=== PATIENT | female | born 2000 | race Caucasian/White ===

== ENCOUNTER 2025-03-18 13:49 | Outpatient (AMB) | payer MEDICAID, SELFPAY ==
[2025-03-18 14:16] VITALS: BP 116/71; PULSE 95; RESP 20; TEMP 36.8; O2SAT 99; BMI 27.6
--- NOTE | 2025-03-18 14:16 | AMB.OBINITIA ---
Vital Signs 03/18/25 14:16 Height 1.55 m Height Method Stated Weight 66.281 kg Weight Measurement Method Standing Scale BMI 27.6 BP 116/71 Blood Pressure Source Automatic Cuff Blood Pressure Location Right Upper Arm Position Sitting Respiration 20 Pulse 95 Pulse Source Monitor Temp 98.2 F Temp Source Oral Pulse Oximetry (%) 99 Oxygen Delivery Method Room Air Allergies/Home Meds Allergies & Medications Allergies No Known Allergies Allergy (Verified 03/18/25 14:17) Medication Reconciliation No Known Home Medications 03/18/25 [History Confirmed 03/18/25] Intake Visit Data Collection New Patient or Established: New Patient (never been to [facility]) Reason for Visit:: INITIAL CARE/TRANSFER Seen by Clinical Staff ONLY (RN/MA): No Finance Assistant Required: No Do You Feel Safe at Home: Yes Authorities Contacted: N/A PCP or OBGYN visit in last 3 months: Yes Hx Now: Yes Are you currently on any form of Control: No Last menstrual period: 01/11/25 Pain Present Currently: No Pain Scale Used: Wilcox-Cisse/Numerical Pain scale:: 0 Smoking Status Smoking Status: Never smoker Questionnaires Covid-19 Vaccine Questionnaire Has patient been vacinated for Covid-19 Have you been vacinated for Covid-19: Yes PHQ-9 PHQ-2 Over the last 2 weeks, how often have you been bothered by any of the following problems? 1. Little interest or pleasure in doing things: not at all 2. Feeling down, depressed, or hopeless: not at all Total score: 0 PHQ-9 3. Trouble falling or staying asleep, or sleeping too much: Not at all 4. Feeling tired or having little energy: Not at all 5. Poor appetite or overeating: Not at all 6. Feeling bad about yourself - or that you are a failure or have let yourself or your family down: Not at all 7. Trouble concentrating on things, such as reading the newspaper or watching television: Not at all 8. Moving or speaking so slowly that other people could have noticed? - Or the opposite - being so fidgety or restless that you have been moving around a lot more than usual: not at all 9. Thoughts that you would be better off or of hurting yourself in some way: Not at all Total score: 0 Source: Developed by Drs. Tay Wilder, Elana Mcmanus, Bashir Santana and colleagues, with an educational antonia from [employer]. Depression screen completed yes Social History Living Situation History Marital Status: Lives With: Family Housing: House Tobacco History Smoking Status: Never smoker Second Hand Smoke Exposure: No Alcohol History Alcohol Intake: Never Domestic Abuse History Do You Feel Safe at Home: Yes History of Present Illness HPI Narrative 25-year-old 4 para 3 here for OBI. Last period January 11, 2025. Estimated due date October 21, 2025. Patient reports regular menses x 5 days and she is sure of her dates. Denies any existing chronic illness. Denies social habits. Patient had a Pap smear that was normal. Her GC and Chlamydia were negative. Thyroid negative. O+, antibody screen negative, RPR nonreactive, rubella immune, hepatitis B negative, C-, HIV negative, GC and Chlamydia were negative. Patient had negative drug screen. And platelets were 167. Patient reports that she spotted through the month of February. Was seen in the ER and she was told she had a subchorionic hemorrhage. It was in [place] and we have not been able to get records so medical release will be done OB Initial Visit OB Flowsheet OB Flowsheet Initial Weight: Not Recorded Date <del>?</del> EGA Weight BP Alb Glu CTX Pres Fundal ht FHR Mov Dilation Station Effacement Hx Notes Visit Note 03/18/25 <del>?</del> 9w 3d 66.281 kg 116/71 absent unknown 9 156 absent spotting light, no cramps. unable to get ER record, subchorionic bleed, no leaking or pain, c/s x3. denies social habit,no surgery. certain dates schedule MFM sono, NIPT NV, OB panel today. continue PNV, hydrate, SAB precaution, rtc 3 week Menstrual History Menstrual reliability: definite Flow: normal Menstrual regularity: regular Monthly: Yes Age at menarche: 10 On control pills at conception: No Associated symptoms (LMP): Reports nausea, fatigue and breast tenderness OB History : 4 Para: 3 # of Living Children: 3 Delivery History 1st : Child's name: IGNACIO date: 07/16/17 sex: male Delivery type: Delivery complications: NONE History of depression before or after : No 2nd : Child's name: ZORAIDA date: 07/26/18 sex: male Delivery type: Delivery complications: NONE History of depression before or after : No 3rd : Child's name: MAME date: 08/09/20 sex: female Delivery type: History of depression before or after : No Infection History & Risk Evaluation History of STDs: none Genetic Screening & History Genetic Screening/Teratology Counseling - Includes patient, baby's father, or anyone in either family with: 1. Patient's age 35 years or older as of estimated date of delivery: No 2. Thalassemia (Peruvian, Serbian, Mediterranean, or Background); MCV less than 80: No 3. Neural Tube Defect (Meningomyelocele, Spina Bifida, or Anencephaly): No 4. Congenital Heart Defect: No 5. Down Syndrome: No 6. Rohit-Sachs (Ashkenazi Zoroastrian, Cajun, Georgian [place]): No 7. Claudette Disease (Ashkenazi Zoroastrian): No 8. Familial Dysautonomia (Ashkenazi Zoroastrian): No 9. Sickle Cell Disease or Trait (): No 10. Hemophilia or other blood disorders: No 11. Muscular Dystrophy: No 12. Cystic Fibrosis: No 13. [place]'s Chorea: No 14. Mental Retardation/Autism: No 15. Other inherited genetic or chromosomal disorder: No 16. Maternal Metabolic Disorder (EG,TYPE 1 Diabetes, PKU): No 17. Patient or baby's father had a child with defects not listed above: No 18. Recurrent loss or a stillbirth: No 19. Medications (including supplements, vitamins, herbs or otc drugs)/illicit/recreational drugs/alcohol since last menstrual period: No 20. Any other: No Infection History 1. Live with someone with TB or exposed to TB: No 2. Rash or viral illness since last menstrual period: No 3. Hepatitis B,C: No Other (see comments) Source: [employer] Review of Systems Review of Systems Systems Reviewed: All systems reviewed, normal except as documented Constitutional Constitutional: Reports fatigue Gastrointestinal Gastrointestinal: Reports nausea Endocrine Endocrine: Reports fatigue Exam General Limitations: no limitations General Appearance: alert, in no apparent distress, comfortable, cooperative, healthy appearing, well developed and well groomed Head Head exam: atraumatic, normocephalic and normal inspection Chest Chest inspection: Present normal inspection and symmetric chest wall rise Resp Respiratory exam: Present normal lung sounds bilaterally Abdominal Abdominal exam: Present soft, normal bowel sounds and scar (vertical skin incision) Psych Psychiatric exam: Present normal affect and normal mood Office Procedures OB Clinic LOC & Office Proc's Nursing/Assessment Patient Status: Initial/New Patient OB Clinic Nursing Assessment: Medication Reconciliation, Update PMH in EMR and Vital Signs OB Clinic Coordination of Care: Complex Care and Chronic Disease 1-5, Consent,records obtained, informed consent, Education Simp Pt/Fam, Lab and Imaging orders, Results/Orders obtained and Staff clarify orders Special Needs: Heart tones New Patient Charge New Patient Point Assignment: [id number] New Patient Point Charge: IMPORT/EXPORT AGENT Level 4 ([id number]) Assessment & Plan Diagnosis / Problem List (1) Encounter for supervision of normal in multigravida in first trimester: Status: Acute (2) Previous delivery affecting , antepartum: Status: Acute Plan continue PNV, discuss sab precaution. schedule MFM for NT, OB panel today. hydrate. rtc 2 week Additional Plan Follow Up: 2 Weeks (obc)
== END 2025-03-18 14:40 | disposition home or self-care (01) ==
PROVIDERS: Supervising Provider Advanced Practice Midwife; Visit Provider Advanced Practice Midwife
DX: O09.291 Supervision of pregnancy with other poor reproductive or obstetric history, first trimester (principal); Z3A.09 9 weeks gestation of pregnancy; O34.219 Maternal care for unspecified type scar from previous cesarean delivery
CPT/HCPCS: 99204; G0463

== ENCOUNTER 2025-05-01 11:33 | Outpatient (AMB) | payer MEDICAID, SELFPAY ==
[2025-05-01 11:45] VITALS: BP 107/69; PULSE 80; RESP 17; TEMP 36.8; O2SAT 98; BMI 27.4
--- NOTE | 2025-05-01 11:45 | AMB.OBVISIT ---
Vital Signs 05/01/25 11:45 Height 1.55 m Height Method Measured Weight 65.998 kg Weight Measurement Method Standing Scale BMI 27.4 BP 107/69 Blood Pressure Source Automatic Cuff Blood Pressure Location Right Upper Arm Position Sitting Respiration 17 Pulse 80 Pulse Source Monitor Temp 98.2 F Temp Source Temporal Artery Scan Pulse Oximetry (%) 98 Oxygen Delivery Method Room Air Allergies/Home Meds Allergies & Medications Allergies No Known Allergies Allergy (Verified 05/01/25 11:46) Medication Reconciliation No Known Home Medications 03/18/25 [History Confirmed 05/01/25] Intake Visit Data Collection New Patient or Established: Established Patient (seen at [facility] within 3 years) Reason for Visit:: OBC Consent obtained for Telemed Visit: No Seen by Clinical Staff ONLY (RN/MA): No Health And Human Performance Professor Required: Yes Health And Human Performance Professor's name/title: CELE Do You Feel Safe at Home: Yes Authorities Contacted: N/A PCP or OBGYN visit in last 3 months: Yes Date of Last PCP or OBGYN visit: 04/04/25 Hx Now: Yes Are you currently on any form of Control: No Pain Present Currently: Yes Pain Location: Head Pain scale:: 8 Smoking Status Smoking Status: Never smoker Questionnaires Covid-19 Vaccine Questionnaire Has patient been vacinated for Covid-19 Have you been vacinated for Covid-19: Yes PHQ-9 PHQ-2 Over the last 2 weeks, how often have you been bothered by any of the following problems? 1. Little interest or pleasure in doing things: not at all PHQ-9 8. Moving or speaking so slowly that other people could have noticed? - Or the opposite - being so fidgety or restless that you have been moving around a lot more than usual: not at all Source: Developed by Drs. Tay Wilder, Elana Mcmanus, Bashir Snatana and colleagues, with an educational antonia from [employer]. Social History Living Situation History Lives With: Family Housing: House Tobacco History Smoking Status: Never smoker Second Hand Smoke Exposure: No Alcohol History Alcohol Intake: Never Domestic Abuse History Do You Feel Safe at Home: Yes Care OB Visit Log OB Flowsheet Initial Weight: Not Recorded Date <del>?</del> EGA Weight BP Alb Glu CTX Pres Fundal ht FHR Mov Dilation Station Effacement Hx Notes Visit Note 03/18/25 <del>?</del> 9w 3d 66.281 kg 116/71 absent unknown 9 156 absent spotting light, no cramps. unable to get ER record, subchorionic bleed, no leaking or pain, c/s x3. denies social habit,no surgery. certain dates schedule MFM sono, NIPT NV, OB panel today. continue PNV, hydrate, SAB precaution, rtc 3 week 04/04/25 <del>?</del> 11w 6d 65.941 kg 111/73 absent unknown 10 156 active denies bleeding at this time. denies sab complaints. n/v improving. unable to go to [place] for MFM. appt cancelled by [facility]. r/s sono at [facility], nipt/carrier screen today, discuss sab precaution, rtc 4 week with ob/prev c/s x3 05/01/25 <del>?</del> 15w 5d 65.998 kg 107/69 absent unknown 159 active , 15w5d. No CTX/LOF/VB, good FM. Reports occasional MARLOW and abdominal pulling, likely due to prior CS scar tissue and position. FHR 159 bpm. Hx 3 prior CS, early bleed with resolved hematoma. Prior labs and NIPT normal. AFP pending. Plan: Order AFP to be sent to [facility]. Pt to expect call from [facility] regarding testing. Request US report from [facility]. Recommend side-lying opposite position. Tylenol up to 1000?mg PRN for MARLOW. Discuss TL at time of CS. F/u per routine. SOCO Calculator Estimated Delivery Date Method Current WG Current Estimate 10/18/25 LMP (Certain) 15w 6d Notes Visit Date: 03/18/25 Last Updated by: Kristan Kay CNM 25 yo , c/sx3. LMP 01/11/25 EDC 10/21/25. pap wnl, O+,abs-,rpr;;nr, rub imm, hbsag-,HIV-,HC-, GC/CT-, UT-, TSH normal. Office Procedures OB Clinic LOC & Office Proc's Nursing/Assessment Patient Status: Established Patient OB Clinic Nursing Assessment: Medication Reconciliation, Update PMH in EMR and Vital Signs OB Clinic Coordination of Care: Complex Care and Chronic Disease 1-5, Education Complex Pt/Fam, Consent,records obtained, informed consent and Education Simp Pt/Fam Special Needs: Heart tones Established Patient Charge Established Patient Point Assignment: 125 Established Patient Point Charge: EP Level 4 (120-155) Assessment & Plan Diagnosis / Problem List (1) Previous delivery affecting , antepartum: Status: Acute Plan Problem List - - Previous delivery - Headache - Abdominal pain Assessment , 25-year-old female at 15 weeks and 5 days gestation, presenting for routine visit. History of three previous sections. Patient reports occasional headaches and pulling sensation in the abdomen, likely due to scar tissue from previous C-sections and positioning. heart rate auscultated at 159 bpm, within normal limits. Previous labs and NIPT reported as normal. History of bleeding in early with resolved hematoma, no current concerns noted. AFP test pending. Plan - Order AFP test, to be sent to [facility] - Patient to receive call from [facility] regarding AFP test - Obtain and review ultrasound report from [facility] - Patient advised to sleep on the side opposite to where the baby is positioned - Patient can take up to 1000mg of Tylenol for occasional headaches - Consider tubal ligation during upcoming (patient to think about it) - Follow up for next visit (timing not specified) This visit does not meet the criteria for the provided format request. The patient is at 15 weeks and 5 days gestation, which is less than 20 weeks. Additionally, this is not a third-trimester visit. Therefore, the given format is not applicable to this specific visit.
== END 2025-05-01 12:07 | disposition home or self-care (01) ==
LOC: HODSOBC 11:33
PROVIDERS: Supervising Provider Obstetrics & Gynecology; Visit Provider Obstetrics & Gynecology
DX: O09.292 Supervision of pregnancy with other poor reproductive or obstetric history, second trimester (principal); O34.219 Maternal care for unspecified type scar from previous cesarean delivery; O09.892 Supervision of other high risk pregnancies, second trimester; O99.891 Other specified diseases and conditions complicating pregnancy; R51.9 Headache, unspecified; R10.9 Unspecified abdominal pain; Z3A.15 15 weeks gestation of pregnancy
CPT/HCPCS: 99214; G0463

== ENCOUNTER 2025-05-29 10:54 | Outpatient (AMB) | payer MEDICAID, SELFPAY ==
[2025-05-29 11:06] VITALS: BP 109/69; PULSE 96; RESP 18; TEMP 36.8; O2SAT 98; BMI 27.9
--- NOTE | 2025-05-29 11:06 | AMB.OBVISIT ---
Vital Signs 05/29/25 11:06 Height 1.55 m Height Method Stated Weight 67.132 kg Weight Measurement Method Standing Scale BMI 27.9 BP 109/69 Blood Pressure Source Automatic Cuff Blood Pressure Location Left Upper Arm Position Sitting Respiration 18 Pulse 96 Pulse Source Monitor Temp 98.2 F Temp Source Oral Pulse Oximetry (%) 98 Oxygen Delivery Method Room Air Allergies/Home Meds Allergies & Medications Allergies No Known Allergies Allergy (Verified 05/29/25 11:08) Medication Reconciliation No Known Home Medications 03/18/25 [History Confirmed 05/29/25] Intake Visit Data Collection New Patient or Established: Established Patient (seen at [facility] within 3 years) Reason for Visit:: OBC Cnc Programmer Required: Yes Do You Feel Safe at Home: Yes Authorities Contacted: N/A PCP or OBGYN visit in last 3 months: Yes Date of Last PCP or OBGYN visit: 05/01/25 Hx Now: Yes Are you currently on any form of Control: No Pain Present Currently: No Pain Scale Used: Wilcox-Cisse/Numerical Pain scale:: 0 Smoking Status Smoking Status: Never smoker Questionnaires Covid-19 Vaccine Questionnaire Has patient been vacinated for Covid-19 Have you been vacinated for Covid-19: Yes PHQ-9 PHQ-2 Over the last 2 weeks, how often have you been bothered by any of the following problems? 1. Little interest or pleasure in doing things: not at all 2. Feeling down, depressed, or hopeless: not at all Total score: 0 PHQ-9 3. Trouble falling or staying asleep, or sleeping too much: Not at all 4. Feeling tired or having little energy: Not at all 5. Poor appetite or overeating: Not at all 6. Feeling bad about yourself - or that you are a failure or have let yourself or your family down: Not at all 7. Trouble concentrating on things, such as reading the newspaper or watching television: Not at all 8. Moving or speaking so slowly that other people could have noticed? - Or the opposite - being so fidgety or restless that you have been moving around a lot more than usual: not at all 9. Thoughts that you would be better off or of hurting yourself in some way: Not at all Total score: 0 If you checked off any problems, how difficult have these problems made it for you to do your work, take care of things at home, or get along with other people?: not difficult at all Source: Developed by Drs. Tay Wilder, Elana Mcmanus, Bashir Santana and colleagues, with an educational antonia from [employer]. Depression screen completed yes Social History Living Situation History Lives With: Family Housing: House Tobacco History Smoking Status: Never smoker Second Hand Smoke Exposure: No Alcohol History Alcohol Intake: Never Domestic Abuse History Do You Feel Safe at Home: Yes Care OB Visit Log OB Flowsheet Initial Weight: Not Recorded Date <del>?</del> EGA Weight BP Alb Glu CTX Pres Fundal ht FHR Mov Dilation Station Effacement Hx Notes Visit Note 03/18/25 <del>?</del> 9w 3d 66.281 kg 116/71 absent unknown 9 156 absent spotting light, no cramps. unable to get ER record, subchorionic bleed, no leaking or pain, c/s x3. denies social habit,no surgery. certain dates schedule MFM sono, NIPT NV, OB panel today. continue PNV, hydrate, SAB precaution, rtc 3 week 04/04/25 <del>?</del> 11w 6d 65.941 kg 111/73 absent unknown 10 156 active denies bleeding at this time. denies sab complaints. n/v improving. unable to go to [place] for MFM. appt cancelled by [facility]. r/s sono at [facility], nipt/carrier screen today, discuss sab precaution, rtc 4 week with ob/prev c/s x3 05/01/25 <del>?</del> 15w 5d 65.998 kg 107/69 absent unknown 159 active , 15w5d. No CTX/LOF/VB, good FM. Reports occasional MARLOW and abdominal pulling, likely due to prior CS scar tissue and position. FHR 159 bpm. Hx 3 prior CS, early bleed with resolved hematoma. Prior labs and NIPT normal. AFP pending. Plan: Order AFP to be sent to [facility]. Pt to expect call from [place] regarding testing. Request US report from [facility]. Recommend side-lying opposite position. Tylenol up to 1000?mg PRN for MARLOW. Discuss TL at time of CS. F/u per routine. 05/29/25 <del>?</del> 19w 5d 67.132 kg 109/69 absent cephalic 20 155 active Patient has a history of 3 prior deliveries. Denies MARLOW, VC, and epigastric pain. - AFP test ordered for next appointment - Scheduled follow-up appointment for June 12 at 2:30 PM, pending provider availability - Medication refill request to be communicated to Dr. Tatianna WAN Calculator Estimated Delivery Date Method Current WG Current Estimate 10/18/25 LMP (Certain) 23w 4d Notes Visit Date: 03/18/25 Last Updated by: Kristan Kay, CNM 25 yo , c/sx3. LMP 01/11/25 EDC 10/21/25. pap wnl, O+,abs-,rpr;;nr, rub imm, hbsag-,HIV-,HC-, GC/CT-, UT-, TSH normal. Office Procedures OB Clinic LOC & Office Proc's Nursing/Assessment Patient Status: Established Patient OB Clinic Nursing Assessment: Medication Reconciliation, Update PMH in EMR and Vital Signs OB Clinic Coordination of Care: Education Complex Pt/Fam, Consent,records obtained, informed consent, Lab and Imaging orders, Results/Orders obtained and Staff clarify orders Special Needs: Language special needs Established Patient Charge Established Patient Point Assignment: 85 Established Patient Point Charge: EP Level 3 (80-115) Assessment & Plan Diagnosis / Problem List (1) Previous delivery affecting , antepartum: Status: Acute
== END 2025-05-29 11:19 | disposition home or self-care (01) ==
LOC: HODSOBC 10:54
PROVIDERS: Supervising Provider Obstetrics & Gynecology; Visit Provider Obstetrics & Gynecology
DX: O09.292 Supervision of pregnancy with other poor reproductive or obstetric history, second trimester (principal); O34.219 Maternal care for unspecified type scar from previous cesarean delivery; Z3A.19 19 weeks gestation of pregnancy
CPT/HCPCS: 99213; G0463

== ENCOUNTER 2025-07-02 10:09 | Outpatient (AMB) | payer MEDICAID, SELFPAY ==
[2025-07-02 10:14] VITALS: BP 108/67; PULSE 87; RESP 16; TEMP 36.2; O2SAT 98; BMI 28.5
--- NOTE | 2025-07-02 10:14 | AMB.OBVISIT ---
Vital Signs 07/02/25 10:14 Height 1.55 m Height Method Stated Weight 68.719 kg Weight Measurement Method Standing Scale BMI 28.5 BP 108/67 Blood Pressure Source Automatic Cuff Blood Pressure Location Left Upper Arm Position Sitting Respiration 16 Pulse 87 Pulse Source Monitor Temp 97.2 F Temp Source Oral Pulse Oximetry (%) 98 Oxygen Delivery Method Room Air Allergies/Home Meds Allergies & Medications Allergies No Known Allergies Allergy (Verified 07/02/25 10:15) Medication Reconciliation No Known Home Medications 03/18/25 [History Confirmed 07/02/25] Intake Visit Data Collection New Patient or Established: Established Patient (seen at [facility] within 3 years) Reason for Visit:: OBC Seen by Clinical Staff ONLY (RN/MA): No Search Specialist Required: No Do You Feel Safe at Home: Yes Authorities Contacted: N/A PCP or OBGYN visit in last 3 months: Yes Hx Now: Yes Are you currently on any form of Control: No Pain Present Currently: No Pain Scale Used: Wilcox-Cisse/Numerical Pain scale:: 0 Smoking Status Smoking Status: Never smoker Questionnaires Covid-19 Vaccine Questionnaire Has patient been vacinated for Covid-19 Have you been vacinated for Covid-19: Yes PHQ-9 PHQ-2 Over the last 2 weeks, how often have you been bothered by any of the following problems? 1. Little interest or pleasure in doing things: not at all 2. Feeling down, depressed, or hopeless: not at all Total score: 0 PHQ-9 3. Trouble falling or staying asleep, or sleeping too much: Not at all 4. Feeling tired or having little energy: Not at all 5. Poor appetite or overeating: Not at all 6. Feeling bad about yourself - or that you are a failure or have let yourself or your family down: Not at all 7. Trouble concentrating on things, such as reading the newspaper or watching television: Not at all 8. Moving or speaking so slowly that other people could have noticed? - Or the opposite - being so fidgety or restless that you have been moving around a lot more than usual: not at all 9. Thoughts that you would be better off or of hurting yourself in some way: Not at all Total score: 0 If you checked off any problems, how difficult have these problems made it for you to do your work, take care of things at home, or get along with other people?: not difficult at all Source: Developed by Drs. Tay Wilder, Elana Mcmanus, Bashir Santana and colleagues, with an educational antonia from [employer]. Depression screen completed yes Social History Living Situation History Marital Status: Single Lives With: Family Housing: House Tobacco History Smoking Status: Never smoker Second Hand Smoke Exposure: No Alcohol History Alcohol Intake: Never Domestic Abuse History Do You Feel Safe at Home: Yes Care OB Visit Log OB Flowsheet Initial Weight: Not Recorded Date <del>?</del> EGA Weight BP Alb Glu CTX Pres Fundal ht FHR Mov Dilation Station Effacement Hx Notes Visit Note 03/18/25 <del>?</del> 9w 3d 66.281 kg 116/71 absent unknown 9 156 absent spotting light, no cramps. unable to get ER record, subchorionic bleed, no leaking or pain, c/s x3. denies social habit,no surgery. certain dates schedule MFM sono, NIPT NV, OB panel today. continue PNV, hydrate, SAB precaution, rtc 3 week 04/04/25 <del>?</del> 11w 6d 65.941 kg 111/73 absent unknown 10 156 active denies bleeding at this time. denies sab complaints. n/v improving. unable to go to [place] for MFM. appt cancelled by [facility]. r/s sono at [facility], nipt/carrier screen today, discuss sab precaution, rtc 4 week with ob/prev c/s x3 05/01/25 <del>?</del> 15w 5d 65.998 kg 107/69 absent unknown 159 active , 15w5d. No CTX/LOF/VB, good FM. Reports occasional MARLOW and abdominal pulling, likely due to prior CS scar tissue and position. FHR 159 bpm. Hx 3 prior CS, early bleed with resolved hematoma. Prior labs and NIPT normal. AFP pending. Plan: Order AFP to be sent to [facility]. Pt to expect call from [place] regarding testing. Request US report from [facility]. Recommend side-lying opposite position. Tylenol up to 1000?mg PRN for MARLOW. Discuss TL at time of CS. F/u per routine. 05/29/25 <del>?</del> 19w 5d 67.132 kg 109/69 absent cephalic 20 155 active Patient has a history of 3 prior deliveries. Denies MARLOW, VC, and epigastric pain. - AFP test ordered for next appointment - Scheduled follow-up appointment for June 12 at 2:30 PM, pending provider availability - Medication refill request to be communicated to Dr. Campuzano 07/02/25 <del>?</del> 24w 4d 68.719 kg 108/67 absent cephalic 25 145 active - Patient reports occasional contractions - Described as occurring occasionally - No specific duration mentioned - Denies any problems or concerns with the - Reports active movement - No complaints of pain, bleeding, or other -related symptoms mentioned Plan - Perform one-hour glucose tolerance test for diabetes screening - Follow up on ultrasound appointment in [place] - New referral created for maternal medicine with Dr. Son in [place] for placenta assessment due to history of 3 previous C-sections - Patient advised to drink plenty of water to prevent contractions - Patient instructed to go to hospital if contractions last more than half an hour to one hour SOCO Calculator Estimated Delivery Date Method Current WG Current Estimate 10/18/25 LMP (Certain) 25w 2d Notes Visit Date: 03/18/25 Last Updated by: Kristan Kay CNM 25 yo , c/sx3. LMP 01/11/25 EDC 10/21/25. pap wnl, O+,abs-,rpr;;nr, rub imm, hbsag-,HIV-,HC-, GC/CT-, UT-, TSH normal. Office Procedures OB Clinic LOC & Office Proc's Nursing/Assessment Patient Status: Established Patient OB Clinic Nursing Assessment: Medication Reconciliation, Update PMH in EMR and Vital Signs OB Clinic Coordination of Care: Education Complex Pt/Fam, Consent,records obtained, informed consent, Lab and Imaging orders, Results/Orders obtained and Staff clarify orders Special Needs: Heart tones and Language special needs Established Patient Charge Established Patient Point Assignment: 115 Established Patient Point Charge: EP Level 3 (80-115) Assessment & Plan Diagnosis / Problem List (1) Previous delivery affecting , antepartum: Status: Acute (2) Encounter for supervision of normal in multigravida in first trimester: Status: Acute Plan Problem List - , 24 weeks and 4 days - History of 3 sections - 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 Patient reports occasional contractions. AFP test on 05-04-2025 was negative. One-hour glucose tolerance test on 06-09-2025 was negative. Concern for placenta accreta spectrum due to history of multiple C-sections. movement reported as active. No other acute concerns noted. Plan - Perform one-hour glucose tolerance test for diabetes screening - Follow up on ultrasound appointment in [place] - New referral created for maternal medicine with Dr. Son in [place] for placenta assessment due to history of 3 previous C-sections - Patient advised to drink plenty of water to prevent contractions - Patient instructed to go to hospital if contractions last more than half an hour to one hour 1. Progress Reviewed gestational age, growth, and heart rate. Planned frequent visits (every 2 weeks until 36 weeks, then weekly). 2. Instructed patient to monitor movements and report decreases immediately. 3. Testing Counseled on routine third-trimester labs per guidelines. Discussed potential need for ultrasound or monitoring based on risk factors. 4. Preeclampsia Precaution Educated on preeclampsia signs: severe headache, vision changes, right upper quadrant pain, sudden swelling. Advised urgent reporting of symptoms and discussed blood pressure monitoring if high risk. 5. Labor Precautions Reviewed labor signs: regular contractions, pelvic pressure, back pain, bleeding, or fluid leakage. Instructed to seek immediate care for these symptoms. 6. Lifestyle and Delivery Preparation Reinforced vitamins, nutrition, and safe activity. Discussed plan, pain management, and . Advised on labor preparation (e.g., hospital bag) and expectations. 7. Psychosocial Support Assessed emotional well-being and offered resources for mental health or parenting support.
== END 2025-07-02 10:49 | disposition home or self-care (01) ==
PROVIDERS: Supervising Provider Obstetrics & Gynecology; Visit Provider Obstetrics & Gynecology
DX: O09.292 Supervision of pregnancy with other poor reproductive or obstetric history, second trimester (principal); O34.219 Maternal care for unspecified type scar from previous cesarean delivery; Z3A.24 24 weeks gestation of pregnancy
CPT/HCPCS: 99213; G0463

== ENCOUNTER 2025-07-31 09:27 | Outpatient (AMB) | payer MEDICAID, SELFPAY ==
[2025-07-31 09:34] VITALS: BP 117/73; PULSE 99; RESP 18; TEMP 36.2; O2SAT 98; BMI 28.9
--- NOTE | 2025-07-31 09:34 | OBCLNT_ITS ---
Vital Signs 07/31/25 09:34 Height 1.55 m Height Method Stated Weight 69.513 kg Weight Measurement Method Standing Scale BMI 28.9 BP 117/73 Blood Pressure Source Automatic Cuff Blood Pressure Location Left Upper Arm Position Sitting Respiration 18 Pulse 99 Pulse Source Monitor Temp 97.2 F Temp Source Oral Pulse Oximetry (%) 98 Oxygen Delivery Method Room Air Allergies/Home Meds Allergies & Medications Allergies No Known Allergies Allergy (Verified 07/31/25 09:36) Medication Reconciliation No Known Home Medications 03/18/25 [History Confirmed 07/31/25] Intake Visit Data Collection New Patient or Established: Established Patient (seen at [facility] within 3 years) Reason for Visit:: OBC Seen by Clinical Staff ONLY (RN/MA): No Stitch Bonding Machine Tender Required: No Do You Feel Safe at Home: Yes Authorities Contacted: N/A PCP or OBGYN visit in last 3 months: Yes Date of Last PCP or OBGYN visit: 07/02/25 Hx Now: Yes Are you currently on any form of Control: No Pain Present Currently: No Pain Scale Used: Wilcox-Cisse/Numerical Pain scale:: 0 Smoking Status Smoking Status: Never smoker Questionnaires Covid-19 Vaccine Questionnaire Has patient been vacinated for Covid-19 Have you been vacinated for Covid-19: Yes PHQ-9 PHQ-2 Over the last 2 weeks, how often have you been bothered by any of the following problems? 1. Little interest or pleasure in doing things: not at all 2. Feeling down, depressed, or hopeless: not at all Total score: 0 PHQ-9 3. Trouble falling or staying asleep, or sleeping too much: Not at all 4. Feeling tired or having little energy: Not at all 5. Poor appetite or overeating: Not at all 6. Feeling bad about yourself - or that you are a failure or have let yourself or your family down: Not at all 7. Trouble concentrating on things, such as reading the newspaper or watching television: Not at all 8. Moving or speaking so slowly that other people could have noticed? - Or the opposite - being so fidgety or restless that you have been moving around a lot more than usual: not at all 9. Thoughts that you would be better off or of hurting yourself in some way: Not at all Total score: 0 If you checked off any problems, how difficult have these problems made it for you to do your work, take care of things at home, or get along with other people?: not difficult at all Source: Developed by Drs. Tay Wilder, Elana Mcmanus, Bashir Santana and colleagues, with an educational antonia from [employer]. Depression screen completed yes Social History Living Situation History Marital Status: Single Lives With: Family Housing: House Tobacco History Smoking Status: Never smoker Second Hand Smoke Exposure: No Alcohol History Alcohol Intake: Never Domestic Abuse History Do You Feel Safe at Home: Yes Care OB Visit Log OB Flowsheet Initial Weight: Not Recorded Date -?-?-?-?-?-?-?-?-?-?-?-?- EGA Weight BP Alb Glu CTX Pres Fundal ht FHR Mov Dilation Station Effacement Hx Notes Visit Note 03/18/25 -?-?-?--?-?-?-?-?-?-?-?-?- 9w 3d 66.281 kg 116/71 absent unknown 9 156 absent spotting light, no cramps. unable to get ER record, subchorionic bleed, no leaking or pain, c/s x3. denies social habit,no surgery. certain dates schedule MFM sono, NIPT NV, OB panel today. continue PNV, hydrate, SAB precaution, rtc 3 week 04/04/25 -?-?-?-?-?-?-?-?-?-?-?-?- 11w 6d 65.941 kg 111/73 absent unknown 10 156 active denies bleeding at this time. denies sab complaints. n/v improving. unable to go to [place] for MFM. appt cancelled by [facility]. r/s sono at [facility], nipt/carrier screen today, discuss sab precaution, rtc 4 week with ob/prev c/s x3 05/01/25 -?-?-?-?-?-?-?-?-?-?-?-?- 15w 5d 65.998 kg 107/69 absent unknown 159 active , 15w5d. No CTX/LOF/VB, good FM. Reports occasional MARLOW and abdominal pulling, likely due to prior CS scar tissue and position. FHR 159 bpm. Hx 3 prior CS, early bleed with resolved hematoma. Prior labs and NIPT normal. AFP pending. Plan: Order AFP to be sent to [facility]. Pt to expect call from [place] regarding testing. Request US report from [facility]. Recommend side-lying opposite position. Tylenol up to 1000?mg PRN for MARLOW. Discuss TL at time of CS. F/u per routine. 05/29/25 -?-?-?-?-?-?-?-?-?-?-?-?- 19w 5d 67.132 kg 109/69 absent cephalic 20 155 active Patient has a history of 3 prior deliveries. Denies MARLOW, VC, and epigastric pain. - AFP test ordered for next appointment - Scheduled follow-up appointment for [place] [place] at 2:30 PM, pending provider availability - Medication refill request to be commun icated to Dr. Campuzano 07/02/25 -?-?-?-?-?-?-?-?-?-?-?-?- 24w 4d 68.719 kg 108/67 absent cephalic 25 145 active - Patient reports occasional contractions - Described as occurring occasionally - No specific duration mentioned - Denies any problems or concerns with t he - Reports active movement - No complaints of pain, bleeding, or ot her -related symptoms mentioned Plan - Perform one-hour glucose tolerance maikel t for diabetes screening - Follow up on ultrasound appointment in [place] - New referral created for maternal feta l medicine with Dr. Son in [place] for placenta assessment due to history of 3 previous C-sections - Patient advised to drink plenty of jennifer er to prevent contractions - Patient instructed to go to hospital i f contractions last more than half an hour to one hour 07/31/25 -?-?-?-?-?-?-?-?-?-?-?-?- 28w 5d 69.513 kg 117/73 absent cephalic 29 145 active - She had presented to labor and delivery with contractions at 24 weeks. - labor was ruled out and she was sent home with advice for hydration. - She reports itching on the bottom of both feet, hands, and chest. - Order CBC, CMP, and liver function tests (bile acids) to evaluate itching in hands, feet, and chest - Administer Tdap vaccine today or provi de patient education materials for decision at next visit - Follow up on ultrasound referral to [facility] (placed one month ago, patient not yet contacted) - Consider umbilical hernia repair sandy gillespie planned - Return in 2 weeks SOCO Calculator Estimated Delivery Date Method Current WG Current Estimate 10/18/25 LMP (Certain) 28w 5d Notes Visit Date: 03/18/25 Last Updated by: Kristan Kay, ZACKARY 25 yo , c/sx3. LMP 01/11/25 EDC 10/21/25. pap wnl, O+,abs-,rpr;;nr, rub imm, hbsag-,HIV-,HC-, GC/CT-, UT-, TSH normal. Office Procedures OBC Clinic LOC & Office Proc's Nursing/Assessment Patient Status: Established Patient OB Clinic Nursing Assessment: Medication Reconciliation, Update PMH in EMR and Vital Signs OB Clinic Coordination of Care: Consent,records obtained, informed consent, Education Simp Pt/Fam, Lab and Imaging orders, Results/Orders obtained and Staff clarify orders Special Needs: Heart tones Established Patient Charge Established Patient Point Assignment: 110 Established Patient Point Charge: EP Level 3 (80-115) Assessment & Plan Diagnosis / Problem List (1) Previous delivery affecting , antepartum: Status: Acute (2) Encounter for supervision of normal in multigravida in first trimester: Status: Acute Plan Problem List - , 28 weeks and 5 days gestation - contractions (resolved) - Umbilical hernia - Pruritus Assessment 25-year-old at 28 weeks 5 days gestation with history of contractions at 24 weeks that were evaluated and ruled out for labor. Patient reports pruritus involving bilateral hands, feet, and chest, which raises concern for intrahepatic cholestasis of requiring liver and kidney function assessment. One-hour glucose tolerance test result of 115 mg/dL is within normal limits, ruling out gestational diabetes. Physical examination reveals heart rate of 146-147 bpm, which is reassuring. Patient has developed what appears to be an umbilical hernia with palpable bowel contents, likely secondary to increased intra-abdominal pressure from gravid uterus. Plan - Order CBC, CMP, and liver function tests (bile acids) to evaluate itching in hands, feet, and chest - Administer Tdap vaccine today or provide patient education materials for decision at next visit - Follow up on ultrasound referral to [facility] (placed one month ago, patient not yet contacted) - Consider umbilical hernia repair during planned - Return in 2 weeks 1. Progress Reviewed gestational age (28 weeks 5 days), growth, and heart rate (146-147 bpm, normal). Planned frequent visits (every 2 weeks until 36 weeks, then weekly). 2. Instructed patient to monitor movements and report decreases immediately. 3. Testing Counseled on routine third-trimester labs per guidelines (CBC, CMP ordered due to pruritus symptoms). Discussed potential need for ultrasound or monitoring based on risk factors (ultrasound referral placed, following up on scheduling). 4. Preeclampsia Precaution Educated on preeclampsia signs: severe headache, vision changes, right upper quadrant pain, sudden swelling. Advised urgent reporting of symptoms and discussed blood pressure monitoring if high risk. 5. Labor Precautions Reviewed labor signs: regular contractions, pelvic pressure, back pain, bleeding, or fluid leakage (patient had previous contractions at 24 weeks, ruled out labor). Instructed to seek immediate care for these symptoms. 6. Lifestyle and Delivery Preparation Reinforced vitamins, nutrition, and safe activity. Discussed plan, pain management, and (mentioned for umbilical hernia repair). Advised on labor preparation (e.g., hospital bag) and expectations. 7. Psychosocial Support Assessed emotional well-being and offered resources for mental health or parenting support.
== END 2025-07-31 10:11 | disposition home or self-care (01) ==
PROVIDERS: Supervising Provider Obstetrics & Gynecology; Visit Provider Obstetrics & Gynecology
DX: O09.293 Supervision of pregnancy with other poor reproductive or obstetric history, third trimester (principal); O34.219 Maternal care for unspecified type scar from previous cesarean delivery; Z3A.28 28 weeks gestation of pregnancy; O09.893 Supervision of other high risk pregnancies, third trimester; O26.893 Other specified pregnancy related conditions, third trimester; L29.89 Other pruritus; O99.613 Diseases of the digestive system complicating pregnancy, third trimester; K42.9 Umbilical hernia without obstruction or gangrene
CPT/HCPCS: 99213; G0463

== ENCOUNTER 2025-08-16 09:21 | Outpatient (AMB) | payer MEDICAID, SELFPAY ==
[2025-08-16 10:03] VITALS: BP 102/69; PULSE 102; RESP 18; TEMP 36.2; O2SAT 98; BMI 28.8
--- NOTE | 2025-08-16 10:03 | OBCLNT_ITS ---
Vital Signs 08/16/25 10:03 Height 1.55 m Height Method Stated Weight 69.173 kg Weight Measurement Method Standing Scale BMI 28.8 BP 102/69 Blood Pressure Source Automatic Cuff Blood Pressure Location Right Upper Arm Position Sitting Respiration 18 Pulse 102 H Pulse Source Monitor Temp 97.2 F Temp Source Temporal Artery Scan Pulse Oximetry (%) 98 Oxygen Delivery Method Room Air Allergies/Home Meds Allergies & Medications Allergies No Known Allergies Allergy (Verified 09/30/25 11:36) Medication Reconciliation No Known Home Medications 03/18/25 [History Confirmed 09/30/25] Intake Visit Data Collection New Patient or Established: Established Patient (seen at [facility] within 3 years) Reason for Visit:: OBC Seen by Clinical Staff ONLY (RN/MA): No Video Surveillance Technician Required: Yes Video Surveillance Technician's name/title: CJ SHEPPARD MA Do You Feel Safe at Home: Yes Authorities Contacted: N/A PCP or OBGYN visit in last 3 months: Yes Date of Last PCP or OBGYN visit: 07/31/25 Hx Now: Yes Are you currently on any form of Control: No Pain Present Currently: Yes Pain Location: Abdomen and Back Pain Scale Used: Wilcox-Cisse/Numerical Pain scale:: 0 Smoking Status Smoking Status: Never smoker Immunizations Flu Vaccine in the Last 12 Months: No Flu Vaccine Exclusion Criteria: No Exclusion Criteria Questionnaires Covid-19 Vaccine Questionnaire Has patient been vacinated for Covid-19 Have you been vacinated for Covid-19: No PHQ-9 PHQ-2 Over the last 2 weeks, how often have you been bothered by any of the following problems? 1. Little interest or pleasure in doing things: not at all 2. Feeling down, depressed, or hopeless: not at all Total score: 0 PHQ-9 3. Trouble falling or staying asleep, or sleeping too much: Not at all 4. Feeling tired or having little energy: Not at all 5. Poor appetite or overeating: Not at all 6. Feeling bad about yourself - or that you are a failure or have let yourself or your family down: Not at all 7. Trouble concentrating on things, such as reading the newspaper or watching television: Not at all 8. Moving or speaking so slowly that other people could have noticed? - Or the opposite - being so fidgety or restless that you have been moving around a lot m ore than usual: not at all 9. Thoughts that you would be better off or of hurting yourself in some way: Not at all Total score: 0 If you checked off any problems, how difficult have these problems made it for you to do your work, take care of things at home, or get along with other people?: not difficult at all Source: Developed by Drs. Tay Wilder, Elana Mcmanus, Bashir Santana and colleagues, with an educational antonia from [email or web address]. Depression screen completed yes Social History Living Situation History Marital Status: Lives With: Family Housing: House Tobacco History Smoking Status: Never smoker Second Hand Smoke Exposure: No Alcohol History Alcohol Intake: Never Domestic Abuse History Do You Feel Safe at Home: Yes Care OB Visit Log OB Flowsheet Initial Weight: Not Recorded Date -?-?-?-?-?-?-?-?-?-?-?-?- EGA Weight BP Alb Glu CTX Pres Fundal ht FHR Mov Dilation Station Effacement Hx Notes Visit Note 03/18/25 -?-?-?-?-?-?-?-?-?-?-?-?- 9w 3d 66.281 kg 116/71 absent unknown 9 156 absent spotting light, no cramps. unable to get ER record, subchorionic bleed, no leaking or pain, c/s x3. denies social habit,no surgery. certain dates schedule MFM sono, NIPT NV, OB panel today. continue PNV, hydrate, SAB precaution, rtc 3 week 04/04/25 -?-?-?-?-?-?-?-?-?-?-?-?- 11w 6d 65.941 kg 111/73 absent unknown 10 156 active denies bleeding at this time. denies sab complaints. n/v improving. unable to go to [place] for MFM. appt cancelled by [facility]. r/s sono at [facility], nipt/carrier screen today, discuss sab precaution, rtc 4 week with ob/prev c/s x3 05/01/25 -?-?-?-?-?-?-?-?-?-?-?-?- 15w 5d 65.998 kg 107/69 absent unknown 159 active , 15w5d. No CTX/LOF/VB, good FM. Reports occasional MARLOW and abdominal pulling, likely due to prior CS scar tissue and position. FHR 159 bpm. Hx 3 prior CS, early bleed with resolved hematoma. Prior labs and NIPT normal. AFP pending. Plan: Order AFP to be sent to [facility]. Pt to expect call from [facility] regarding testing. Request US report from [facility]. Recommend side-lying opposite position. Tylenol up to 1000?mg PRN for MARLOW. Discuss TL at time of CS. F/u per routine. 05/29/25 -?-?-?-?-?-?-?-?-?-?-?-?- 19w 5d 67.132 kg 109/69 absent cephalic 20 155 active Patient has a history of 3 prior deliveries. Denies MARLOW, VC, and epigastric pain. - AFP test ordered for next appointment - Scheduled follow-up appointment for Daja gillespie at 2:30 PM, pending provider availability - Medication refill request to be commun icated to Dr. Campuzano 07/02/25 -?-?-?-?-?-?-?-?-?-?-?-?- 24w 4d 68.719 kg 108/67 absent cephalic 25 145 active - Patient reports occasional contractions - Described as occurring occasionally - No specific duration mentioned - Denies any problems or concerns with t he - Reports active movement - No complaints of pain, bleeding, or ot her -related symptoms mentioned Plan - Perform one-hour glucose tolerance maikel t for diabetes screening - Follow up on ultrasound appointment in [place] - New referral created for maternal feta l medicine with Dr. Son in [place] for placenta assessment due to history of 3 previous C-sections - Patient advised to drink plenty of jennifer er to prevent contractions - Patient instructed to go to hospital i f contractions last more than half an hour to one hour 07/31/25 -?-?-?-?-?-?-?-?-?-?-?-?- 28w 5d 69.513 kg 117/73 absent cephalic 29 145 active - She had presented to labor and delivery with contractions at 24 weeks. - labor was ruled out and she was sent home with advice for hydration. - She reports itching on the bottom of both feet, hands, and chest. - Order CBC, CMP, and liver function tests (bile acids) to evaluate itching in hands, feet, and chest - Administer Tdap vaccine today or provi de patient education materials for decision at next visit - Follow up on ultrasound referral to [facility] (placed one month ago, patient not yet contacted) - Consider umbilical hernia repair sandy gillespie planned - Return in 2 weeks 08/16/25 -?-?-?-?-?-?-?-?-?-?-?-?- 31w 0d 69.173 kg 102/69 occasional cephalic 32 155 active - She reports back pain localized to her section scar area. - Patient denies itching symptoms when a sked. - She reports normal movement. - Patient describes normal vaginal disch arge that is white or clear in color. - She denies any yellow or foul-smelling discharge. - Schedule ultrasound at [place] Ultrasound before 37 weeks to assess placenta position - For back pain and ligament pain: take warm shower, Tylenol as needed, and use heating pad - Follow up in 2-3 weeks - Continue monitoring movement - Patient educated on normal vs abnormal vaginal discharge (white/clear normal, yellow/foul-smelling abnormal) 09/30/25 -?-?-?-?-?-?-?-?-?-?-?-?- 37w 3d 71.214 kg 107/69 occasional cephalic 38 155 active - Dyan Sauceda is a patient at 37 weeks and 3 days gestation presenting for routine appointment with history of 3 previous sections. - She is scheduled for section on October 11. - Patient reports feeling pressure, whic h she attributes to the weight of the baby. - She denies any other specific complain ts or symptoms at this visit. - Recent ultrasound with [facility] on September 25, 2025 showed estimated weight of 3716 grams (8 pounds 3 ounces, 98th percentile) at 36 weeks. - Patient has a hernia that may be addre ssed during the upcoming section. - Scheduled cesa rean section on October 11, 2025 - Patient to check in at hospital at 5:3 0 AM on day of surgery - NPO (nothing by mouth) for 8 hours aft er 10 PM the night before surgery - Plan to use existing scar for incision - Hernia evaluation and possible repair during section if indicated - GBS swab obtained during visit - Work excuse documentation provided to patient SOCO Calculator Estimated Delivery Date Method Current WG Current Estimate 10/18/25 LMP (Certain) 38w 6d Notes Visit Date: 09/30/25 Last Updated by: Sage King MD - Date: September 25, 2025 - Ultrasound with MFM at 36 weeks gestation: EFW 3716 grams (8 pounds 3 ounces, 98th percentile), anatomy survey limited due to advanced gestational age, no obvious abnormalities to indicate placenta accreta, posterior placenta Visit Date: 03/18/25 Last Updated by: Kristan Kay, [facility] 25 yo , c/sx3. LMP 01/11/25 EDC 10/21/25. pap wnl, O+,abs-,rpr;;nr, rub imm, hbsag-,HIV-,HC-, GC/CT-, UT-, TSH normal. Office Procedures OBC Clinic LOC & Office Proc's Nursing/Assessment Patient Status: Established Patient OB Clinic Nursing Assessment: Medication Reconciliation, Update PMH in EMR and Vital Signs OB Clinic Coordination of Care: Complex Care and Chronic Disease 1-5, Education Complex Pt/Fam, Consent,records obtained, informed consent, Results/Orders obtained and Staff clarify orders Special Needs: Heart tones Established Patient Charge Established Patient Point Assignment: 125 Established Patient Point Charge: EP Level 4 (120-155) Assessment & Plan Diagnosis / Problem List (1) Encounter for sterilization: Status: Acute (2) Previous delivery affecting , antepartum: Status: Acute Plan Problem List - at 31 weeks gestation - History of section - Back pain - Round ligament pain Assessment 31-week patient with history of three prior sections presenting for routine visit. Patient reports back pain at the site of previous scars. Recent laboratory studies including liver function tests were within normal limits, ruling out concerns for cholestasis of despite previous itching complaints. movement is present and reassuring. Patient has normal vaginal discharge that is white or clear in color. Ultrasound evaluation is pending to assess placental location given history of multiple deliveries. Plan - Schedule ultrasound at [place] [facility]tras[facility] before 37 weeks to assess placenta position - For back pain and ligament pain: take warm shower, Tylenol as needed, and use heating pad - Follow up in 2-3 weeks - Continue monitoring movement - Patient educated on normal vs abnormal vaginal discharge (white/clear normal, yellow/foul-smelling abnormal) 1. Progress Reviewed gestational age (31 weeks 0 days), growth, and heart rate. Patient reports baby is moving well. Planned frequent visits (scheduled for 2-3 weeks, then more frequent monitoring). 2. Instructed patient to monitor movements and report decreases immediately. 3. Testing Patient's recent labs came out normal, including liver function tests. Discussed need for [place] ultrasound before 37 weeks to assess placental position given history of 3 prior C-sections. 4. Preeclampsia Precaution Educated on preeclampsia signs: severe headache, vision changes, right upper quadrant pain, sudden swelling. Advised urgent reporting of symptoms and discussed blood pressure monitoring if high risk. 5. Labor Precautions Reviewed labor signs: regular contractions, pelvic pressure, back pain, bleeding, or fluid leakage. Patient reports current back pain related to C- section scar. Advised warm showers, Tylenol, and heating pad for comfort. Instructed to seek immediate care for abnormal symptoms. 6. Lifestyle and Delivery Preparation Reinforced vitamins, nutrition, and safe activity. Discussed vaginal discharge - advised that white or clear discharge is normal, but yellow or foul- smelling discharge requires evaluation. Planning repeat given history of 3 prior deliveries. 7. Psychosocial Support Assessed emotional well-being and offered resources for mental health or parenting support.
== END 2025-08-16 10:28 | disposition home or self-care (01) ==
LOC: HODSOBC 09:21
PROVIDERS: Supervising Provider Obstetrics & Gynecology; Visit Provider Obstetrics & Gynecology
DX: O09.293 Supervision of pregnancy with other poor reproductive or obstetric history, third trimester (principal); O34.219 Maternal care for unspecified type scar from previous cesarean delivery; O09.893 Supervision of other high risk pregnancies, third trimester; O99.891 Other specified diseases and conditions complicating pregnancy; R10.20 Pelvic and perineal pain unspecified side; M54.9 Dorsalgia, unspecified; Z3A.31 31 weeks gestation of pregnancy
CPT/HCPCS: 99214; G0463

== ENCOUNTER 2025-09-06 10:26 | Outpatient (AMB) | payer MEDICAID, SELFPAY ==
[2025-09-06 10:42] VITALS: BP 104/68; PULSE 84; RESP 18; TEMP 36.6; O2SAT 98; BMI 29.2
--- NOTE | 2025-09-06 10:42 | OBCLNT_ITS ---
Vital Signs 09/06/25 10:42 Height 1.55 m Height Method Stated Weight 70.364 kg Weight Measurement Method Standing Scale BMI 29.2 BP 104/68 Blood Pressure Source Automatic Cuff Blood Pressure Location Right Upper Arm Position Sitting Respiration 18 Pulse 84 Pulse Source Monitor Temp 97.8 F Temp Source Temporal Artery Scan Pulse Oximetry (%) 98 Oxygen Delivery Method Room Air Allergies/Home Meds Allergies & Medications Allergies No Known Allergies Allergy (Verified 09/30/25 11:36) Medication Reconciliation No Known Home Medications 03/18/25 [History Confirmed 09/30/25] Immunizations Immunizations Flu Vaccine in the Last 12 Months: No Flu Vaccine Exclusion Criteria: Refused by Patient Care OB Visit Log OB Flowsheet Initial Weight: Not Recorded Date -?-?-?-?-?-?-?-?-?-?-?-?- EGA Weight BP Alb Glu CTX Pres Fundal ht FHR Mov Dilation Station Effacement Hx Notes Visit Note 03/18/25 -?-?-?-?-?-?-?-?-?-?-?-?- 9w 3d 66.281 kg 116/71 absent unknown 9 156 absent spotting light, no cramps. unable to get ER record, subchorionic bleed, no leaking or pain, c/s x3. denies social habit,no surgery. certain dates schedule MFM sono, NIPT NV, OB panel today. continue PNV, hydrate, SAB precaution, rtc 3 week 04/04/25 -?-?-?-?-?-?-?-?-?-?-?-?- 11w 6d 65.941 kg 111/73 absent unknown 10 156 active denies bleeding at this time. denies sab complaints. n/v improving. unable to go to [place] for MFM. appt cancelled by [facility]. r/s sono at [facility], nipt/carrier screen today, discuss sab precaution, rtc 4 week with ob/prev c/s x3 05/01/25 -?-?-?-?-?-?-?-?-?-?-?-?- 15w 5d 65.998 kg 107/69 absent unknown 159 active , 15w5d. No CTX/LOF/VB, good FM. Reports occasional MARLOW and abdominal pulling, likely due to prior CS scar tissue and position. FHR 159 bpm. Hx 3 prior CS, early bleed with resolved hematoma. Prior labs and NIPT normal. AFP pending. Plan: Order AFP to be sent to [facility]. Pt to expect call from [facility] regarding testing. Request US report from [facility]. Recommend side-lying opposite position. Tylenol up to 1000?mg PRN for MARLOW. Discuss TL at time of CS. F/u per routine. 05/29/25 -?-?-?-?-?--?-?-?-?-?-?-?- 19w 5d 67.132 kg 109/69 absent cephalic 20 155 active Patient has a history of 3 prior deliveries. Denies MARLOW, VC, and epigastric pain. - AFP test ordered for next appointment - Scheduled follow-up appointment for Daja lagunas at 2:30 PM, pending provider availability - Medication refill request to be commun icated to Dr. Campuzano 07/02/25 -?-?-?-?-?-?-?-?-?-?-?-?- 24w 4d 68.719 kg 108/67 absent cephalic 25 145 active - Patient reports occasional contractions - Described as occurring occasionally - No specific duration mentioned - Denies any problems or concerns with t he - Reports active movement - No complaints of pain, bleeding, or ot her -related symptoms mentioned Plan - Perform one-hour glucose tolerance maikel t for diabetes screening - Follow up on ultrasound appointment in [place] - New referral created for maternal feta l medicine with Dr. Son in [place] for placenta assessment due to history of 3 previous C-sections - Patient advised to drink plenty of jennifer er to prevent contractions - Patient instructed to go to hospital i f contractions last more than half an hour to one hour 07/31/25 -?-?-?-?-?-?-?-?-?-?-?-?- 28w 5d 69.513 kg 117/73 absent cephalic 29 145 active - She had presented to labor and delivery with contractions at 24 weeks. - labor was ruled out and she was sent home with advice for hydration. - She reports itching on the bottom of both feet, hands, and chest. - Order CBC, CMP, and liver function tests (bile acids) to evaluate itching in hands, feet, and chest - Administer Tdap vaccine today or provi de patient education materials for decision at next visit - Follow up on ultrasound referral to [facility] (placed one month ago, patient not yet contacted) - Consider umbilical hernia repair sandy gillespie planned - Return in 2 weeks 08/16/25 -?-?-?-?-?-?-?-?-?-?-?-?- 31w 0d 69.173 kg 102/69 occasional cephalic 32 155 active - She reports back pain localized to her section scar area. - Patient denies itching symptoms when a sked. - She reports normal movement. - Patient describes normal vaginal disch arge that is white or clear in color. - She denies any yellow or foul-smelling discharge. - Schedule ultrasound at [place] Ultrasound before 37 weeks to assess placenta position - For back pain and ligament pain: take warm shower, Tylenol as needed, and use heating pad - Follow up in 2-3 weeks - Continue monitoring movement - Patient educated on normal vs abnormal vaginal discharge (white/clear normal, yellow/foul-smelling abnormal) 09/06/25 -?-?-?-?-?-?-?-?-?-?-?-?- 34w 0d 70.364 kg 104/68 occasional cephalic 34 145 active - Patient reports some vaginal discharge that is clear white in color. - Discharge comes and goes intermitten tly. - She denies any contractions or other s ymptoms. - Patient has not yet attended her [facility] ultrasound appointment in [place], which is planned for September. - She expresses preference to use her ve rtical scar for the planned repeat section. - Scheduled fo r repeat on October 11, 2025 at 7:30 AM - [facility] ultrasound scheduled for September 25 for placenta evaluation - Use vertical scar for repeat per patient request - Follow-up appointment scheduled after September 25 ultrasound - GBS testing at next appointment - labor precautions reviewed - Return to hospital if contractions bec ome very strong or occur every 5 minutes 09/30/25 -?-?-?-?-?-?-?-?-?-?-?-?- 37w 3d 71.214 kg 107/69 occasional cephalic 38 155 active - Dyan Sauceda is a patient at 37 weeks and 3 days gestation presenting for routine appointment with history of 3 previous sections. - She is scheduled for section on October 11. - Patient reports feeling pressure, whic h she attributes to the weight of the baby. - She denies any other specific complain ts or symptoms at this visit. - Recent ultrasound with [facility] on September 25, 2025 showed estimated weight of 3716 grams (8 pounds 3 ounces, 98th percentile) at 36 weeks. - Patient has a hernia that may be addre ssed during the upcoming section. - Scheduled cesa rean section on October 11, 2025 - Patient to check in at hospital at 5:3 0 AM on day of surgery - NPO (nothing by mouth) for 8 hours aft er 10 PM the night before surgery - Plan to use existing scar for incision - Hernia evaluation and possible repair during section if indicated - GBS swab obtained during visit - Work excuse documentation provided to patient SOCO Calculator Estimated Delivery Date Method Current WG Current Estimate 10/18/25 LMP (Certain) 38w 6d Notes Visit Date: 09/30/25 Last Updated by: Sage Kign MD - Date: September 25, 2025 - Ultrasound with MFM at 36 weeks gestation: EFW 3716 grams (8 pounds 3 ounces, 98th percentile), anatomy survey limited due to advanced gestational age, no obvious abnormalities to indicate placenta accreta, posterior placenta Visit Date: 03/18/25 Last Updated by: Kristan Kay CNM 25 yo , c/sx3. LMP 01/11/25 EDC 10/21/25. pap wnl, O+,abs-,rpr;;nr, rub imm, hbsag-,HIV-,HC-, GC/CT-, UT-, TSH normal. Office Procedures OBC Clinic LOC & Office Proc's Nursing/Assessment Patient Status: Established Patient OB Clinic Nursing Assessment: Medication Reconciliation, Update PMH in EMR and Vital Signs OB Clinic Coordination of Care: Complex Care and Chronic Disease 1-5, Education Complex Pt/Fam, Consent,records obtained, informed consent, Lab and Imaging orders, Results/Orders obtained and Staff clarify orders Special Needs: Heart tones Established Patient Charge Established Patient Point Assignment: 140 Established Patient Point Charge: EP Level 4 (120-155) Assessment & Plan Diagnosis / Problem List (1) Previous delivery affecting , antepartum: Status: Acute Plan Problem List - at 33 weeks and 5 days gestation - History of 3 previous sections - Placental abnormality requiring evaluation Assessment at 33 weeks and 5 days gestation with history of three prior sections. Patient is experiencing clear white vaginal discharge which is normal mucus. She reports false contractions that come and go. heart rate is 155 bpm which is normal. Patient has a vertical uterine scar from previous section. Plan - Scheduled for repeat on October 11, 2025 at 7:30 AM - MFM ultrasound scheduled for September 25 for placenta evaluation - Use vertical scar for repeat per patient request - Follow-up appointment scheduled after September 25 ultrasound - GBS testing at next appointment - labor precautions reviewed - Return to hospital if contractions become very strong or occur every 5 minutes 1. Progress Reviewed gestational age (33 weeks and 5 days), growth, and heart rate (155 normal heart beat). Planned frequent visits (every 2 weeks until 36 weeks, then weekly). 2. Instructed patient to monitor movements and report decreases immediately. 3. Testing Counseled on routine third-trimester labs per guidelines. Discussed potential need for ultrasound or monitoring based on risk factors (M ultrasound scheduled for September 25 for placenta evaluation). 4. Preeclampsia Precaution Educated on preeclampsia signs: severe headache, vision changes, right upper quadrant pain, sudden swelling. Advised urgent reporting of symptoms and discussed blood pressure monitoring if high risk. 5. Labor Precautions Reviewed labor signs: regular contractions, pelvic pressure, back pain, bleeding, or fluid leakage. Instructed to seek immediate care for these symptoms (patient advised that if contractions become very strong or every 5 minutes, she should come to the hospital). 6. Lifestyle and Delivery Preparation Reinforced vitamins, nutrition, and safe activity. Discussed plan, pain management, and . Advised on labor preparation (e.g., hospital bag) and expectations (repeat scheduled for October 11, 2025 at 7:30 AM using vertical scar). 7. Psychosocial Support Assessed emotional well-being and offered resources for mental health or parenting support.
== END 2025-09-06 11:08 | disposition home or self-care (01) ==
LOC: HODSOBC 10:26
PROVIDERS: Supervising Provider Obstetrics & Gynecology; Visit Provider Obstetrics & Gynecology
DX: O09.293 Supervision of pregnancy with other poor reproductive or obstetric history, third trimester (principal); O34.212 Maternal care for vertical scar from previous cesarean delivery; Z3A.34 34 weeks gestation of pregnancy; Z28.21 Immunization not carried out because of patient refusal
CPT/HCPCS: 99214; G0463

== ENCOUNTER 2025-09-30 11:23 | Outpatient (AMB) | payer MEDICAID, SELFPAY ==
[2025-09-30 11:35] VITALS: BP 107/69; PULSE 85; RESP 18; TEMP 36.5; O2SAT 98; BMI 29.6
--- NOTE | 2025-09-30 11:35 | OBCLNT_ITS ---
Vital Signs 09/30/25 11:35 Height 1.55 m Height Method Stated Weight 71.214 kg Weight Measurement Method Standing Scale BMI 29.6 BP 107/69 Blood Pressure Source Automatic Cuff Blood Pressure Location Right Upper Arm Position Sitting Respiration 18 Pulse 85 Pulse Source Monitor Temp 97.7 F Temp Source Temporal Artery Scan Pulse Oximetry (%) 98 Oxygen Delivery Method Room Air Allergies/Home Meds Allergies & Medications Allergies No Known Allergies Allergy (Verified 09/30/25 11:36) Medication Reconciliation No Known Home Medications 03/18/25 [History Confirmed 09/30/25] Immunizations Immunizations Flu Vaccine in the Last 12 Months: No Flu Vaccine Exclusion Criteria: No Exclusion Criteria Care OB Visit Log OB Flowsheet Initial Weight: Not Recorded Date -?-?-?-?-?-?-?-?-?-?-?-?- EGA Weight BP Alb Glu CTX Pres Fundal ht FHR Mov Dilation Station Effacement Hx Notes Visit Note 03/18/25 -?-?-?-?-?-?-?-?-?-?-?-?- 9w 3d 66.281 kg 116/71 absent unknown 9 156 absent spotting light, no cramps. unable to get ER record, subchorionic bleed, no leaking or pain, c/s x3. denies social habit,no surgery. certain dates schedule MFM sono, NIPT NV, OB panel today. continue PNV, hydrate, SAB precaution, rtc 3 week 04/04/25 -?-?-?-?-?-?-?-?-?-?-?-?- 11w 6d 65.941 kg 111/73 absent unknown 10 156 active denies bleeding at this time. denies sab complaints. n/v improving. unable to go to [place] for MFM. appt cancelled by [facility]. r/s sono at [facility], nipt/carrier screen today, discuss sab precaution, rtc 4 week with ob/prev c/s x3 05/01/25 -?-?-?-?-?-?-?-?-?-?-?-?- 15w 5d 65.998 kg 107/69 absent unknown 159 active , 15w5d. No CTX/LOF/VB, good FM. Reports occasional MARLOW and abdominal pulling, likely due to prior CS scar tissue and position. FHR 159 bpm. Hx 3 prior CS, early bleed with resolved hematoma. Prior labs and NIPT normal. AFP pending. Plan: Order AFP to be sent to [facility]. Pt to expect call from [facility] regarding testing. Request US report from [facility]. Recommend side-lying opposite position. Tylenol up to 1000?mg PRN for MARLOW. Discuss TL at time of CS. F/u per routine. 05/29/25 -?-?--?-?-?-?-?-?-?-?-?-?- 19w 5d 67.132 kg 109/69 absent cephalic 20 155 active Patient has a history of 3 prior deliveries. Denies MARLOW, VC, and epigastric pain. - AFP test ordered for next appointment - Scheduled follow-up appointment for Daja lagunas at 2:30 PM, pending provider availability - Medication refill request to be commun icated to Dr. Campuzano 07/02/25 -?-?-?-?-?-?-?-?-?-?-?-?- 24w 4d 68.719 kg 108/67 absent cephalic 25 145 active - Patient reports occasional contractions - Described as occurring occasionally - No specific duration mentioned - Denies any problems or concerns with t he - Reports active movement - No complaints of pain, bleeding, or ot her -related symptoms mentioned Plan - Perform one-hour glucose tolerance maikel t for diabetes screening - Follow up on ultrasound appointment in [place] - New referral created for maternal feta l medicine with Dr. Son in [place] for placenta assessment due to history of 3 previous C-sections - Patient advised to drink plenty of jennifer er to prevent contractions - Patient instructed to go to hospital i f contractions last more than half an hour to one hour 07/31/25 -?-?-?-?-?-?-?-?-?-?-?-?- 28w 5d 69.513 kg 117/73 absent cephalic 29 145 active - She had presented to labor and delivery with contractions at 24 weeks. - labor was ruled out and she was sent home with advice for hydration. - She reports itching on the bottom of both feet, hands, and chest. - Order CBC, CMP, and liver function tests (bile acids) to evaluate itching in hands, feet, and chest - Administer Tdap vaccine today or provi de patient education materials for decision at next visit - Follow up on ultrasound referral to Yaz bowles (placed one month ago, patient not yet contacted) - Consider umbilical hernia repair sandy gillespie planned - Return in 2 weeks 09/30/25 -?-?-?-?-?-?-?-?-?-?-?-?- 37w 3d 71.214 kg 107/69 occasional cephalic 38 155 active - Dyan Sauceda is a patient at 37 weeks and 3 days gestation presenting for routine appointment with history of 3 previous sections. - She is scheduled for section on October 11. - Patient reports feeling pressure, whic h she attributes to the weight of the baby. - She denies any other specific complain ts or symptoms at this visit. - Recent ultrasound with [facility] on September 25, 2025 showed estimated weight of 3716 grams (8 pounds 3 ounces, 98th percentile) at 36 weeks. - Patient has a hernia that may be addre ssed during the upcoming section. - Scheduled cesa rean section on October 11, 2025 - Patient to check in at hospital at 5:3 0 AM on day of surgery - NPO (nothing by mouth) for 8 hours aft er 10 PM the night before surgery - Plan to use existing scar for incision - Hernia evaluation and possible repair during section if indicated - GBS swab obtained during visit - Work excuse documentation provided to patient SOCO Calculator Estimated Delivery Date Method Current WG Current Estimate 10/18/25 LMP (Certain) 37w 3d Notes Visit Date: 09/30/25 Last Updated by: Sage King MD - Date: September 25, 2025 - Ultrasound with MFM at 36 weeks gestation: EFW 3716 grams (8 pounds 3 ounces, 98th percentile), anatomy survey limited due to advanced gestational age, no obvious abnormalities to indicate placenta accreta, posterior placenta Visit Date: 03/18/25 Last Updated by: Kristan Kay CNM 25 yo , c/sx3. LMP 01/11/25 EDC 10/21/25. pap wnl, O+,abs-,rpr;;nr, rub imm, hbsag-,HIV-,HC-, GC/CT-, UT-, TSH normal. Office Procedures OBC Clinic LOC & Office Proc's Nursing/Assessment Patient Status: Established Patient OB Clinic Nursing Assessment: Medication Reconciliation, Update PMH in EMR and Vital Signs OB Clinic Coordination of Care: Complex Care and Chronic Disease 1-5, Education Complex Pt/Fam, Consent,records obtained, informed consent, Lab and Imaging orders, Results/Orders obtained and Staff clarify orders Special Needs: Heart tones Miscellaneous Interventions: Culture Specimen Collection Established Patient Charge Established Patient Point Assignment: 155 Established Patient Point Charge: EP Level 4 (120-155) Assessment & Plan Diagnosis / Problem List (1) Previous delivery affecting , antepartum: Status: Acute (2) Encounter for supervision of normal in multigravida in first trimester: Status: Acute (3) Encounter for sterilization: Status: Acute Plan Problem List - at 37 weeks and 3 days - History of 3 previous sections - Macrosomia (estimated weight 3716 grams, 98th percentile) - Hernia Assessment 37-week 3-day gestation in a patient with history of three previous sections, scheduled for repeat delivery on October 11. Recent MFM ultrasound on September 25, 2025 at 36 weeks showed estimated weight of 3716 grams (8 pounds 3 ounces, 98th percentile) indicating macrosomia. Anatomy survey was limited due to advanced gestational age, but no obvious abnormalities were noted to indicate placenta accreta, with posterior placental location identified. Patient reports pelvic pressure symptoms consistent with advanced gestation and size. Incidental umbilical hernia noted, likely related to increased intra-abdominal pressure from . Plan - Scheduled section on October 11, 2025 - Patient to check in at hospital at 5:30 AM on day of surgery - NPO (nothing by mouth) for 8 hours after 10 PM the night before surgery - Plan to use existing scar for incision - Hernia evaluation and possible repair during section if indicated - GBS swab obtained during visit - Work excuse documentation provided to patient 1. Progress Reviewed gestational age at 37 weeks 3 days, growth with EFW 3716 grams (98th percentile), and heart rate. Patient scheduled for section on October 11 due to history of 3 previous C-sections. 2. Instructed patient to monitor movements and report decreases immediately. 3. Testing Recent ultrasound with [facility] on September 25, 2025 showed no obvious abnormalities to indicate placenta accreta with posterior placenta location. 4. Preeclampsia Precaution Educated on preeclampsia signs: severe headache, vision changes, right upper quadrant pain, sudden swelling. Advised urgent reporting of symptoms and discussed blood pressure monitoring if high risk. 5. Labor Precautions Reviewed labor signs: regular contractions, pelvic pressure, back pain, bleeding, or fluid leakage. Instructed to seek immediate care for these symptoms. 6. Lifestyle and Delivery Preparation Discussed delivery plan scheduled for October 11 at 5:30 AM with NPO after 10 PM the night before. Counseled on using same incision site and potential hernia evaluation during surgery. 7. Psychosocial Support Assessed emotional well-being and offered resources for mental health or parenting support.
== END 2025-09-30 11:53 | disposition home or self-care (01) ==
LOC: HODSOBC 11:23
PROVIDERS: Supervising Provider Obstetrics & Gynecology; Visit Provider Obstetrics & Gynecology
DX: O09.293 Supervision of pregnancy with other poor reproductive or obstetric history, third trimester (principal); O34.219 Maternal care for unspecified type scar from previous cesarean delivery; Z3A.37 37 weeks gestation of pregnancy
CPT/HCPCS: 99214; G0463

== ENCOUNTER 2025-10-11 05:08 | Inpatient (IN) | payer MEDICAID, SELFPAY ==
[2025-10-11] VITALS (15 sets, daily range): BP systolic 98–142; BP diastolic 53–83; PULSE 63–99; RESP 12–20; TEMP 36.5–37; O2SAT 97–100; BMI 29.0
[2025-10-11] MEDS: RINGERS LACTATED 1000 ML 1,000 ML 100 ML IV (06:00)
[2025-10-11 06:35] LABS: Basophils # (Auto) 0.1 Thou/mm3 (0.0-0.2); Basophils % (Auto) 1 % (0-2.5); Eosinophils # (Auto) 0.1 Thou/mm3 (0.0-0.5); Eosinophils % (Auto) 1 % (0-10); Hematocrit 37.0 % (36.0-46.0); Hemoglobin 12.3 g/dL (12.0-16.0); Immature Granulocytes Auto 0.09 Thou/mm3 (0.00-0.00); Lymphocytes # (Auto) 1.9 Thou/mm3 (1.0-4.8); Lymphocytes % (Auto) 22 % (10-50); Mean Corpuscular HGB Conc 33.2 g/dl (31.0-37.0); Mean Corpuscular Hemoglobin 29.5 pg (25.0-35.0); Mean Corpuscular Volume 89 fL (80-100); Monocytes # (Auto) 0.5 Thou/mm3 (0.0-0.8); Monocytes % (Auto) 6 % (0-12); Neutrophils # (Auto) 6.1 Thou/mm3 (1.8-7.7); Neutrophils % (Auto) 70 % (37-80); Nucleated Red Blood Cell # 0.00 Thou/mm3 (0.00-0.00); Nucleated Red Blood Cell % 0 /100 WBC (0); Platelet Count 88 Thou/mm3 (140-440); RDW Standard Deviation 48.2 fL (36.4-46.3); Red Blood Count 4.17 Miln/mm3 (4.00-5.20); White Blood Count 8.7 Thou/mm3 (3.6-11.0)
[2025-10-11 07:20] LABS: Syphilis Nonreactive (Nonreactive)
[2025-10-11] MEDS: ceFAZolin/D5W 2 GM IV 2 GM/100 ML BAG IV (07:23)
[2025-10-11] MEDS: METOCLOPRAMIDE INJ 5 MG/ML VIAL 2 ML 10 MG IVP (07:23)
[2025-10-11] MEDS: FAMOTIDINE INJ 10 MG/ML VIAL 2 ML 20 MG IV (07:23)
[2025-10-11 07:29] LABS: Platelet Count 82 Thou/mm3 (140-440)
--- NOTE | 2025-10-11 07:37 | PD.LDHP ---
Documentation for date of: 10/11/25 OB Labor/Induct. HPI History of Present Illness Chief complaint: Schedule repeat CS and BTL : 4 Para: 3 Living children: 3 History of sections: Yes (X3) Date of last menstrual period: 01/11/25 SOCO: 10/18/25 Gestational Age (weeks): 39 Gestational Age (days): 0 Gestational age based on last menstrual period: 39 History of present illness: Patient is a 25-year-old 4 para 3-0-0-3 at 39 weeks and 0 days with estimated due date of 10/18/2025 who is presenting for her scheduled repeat low-transverse and bilateral salpingectomy. Patient denies any specific complaints on presentation today. Of note her platelet count is 88,000 today, her last baseline available for review is 122,000 and her 32-week labs. Labs Labs: Positive: Rubella Titre, Negative: RPR, Hepatitis B, HIV, Chlamydia and Gonorrhea and Unknown: Herpes Type 1, Herpes Type 2 and Group Beta Strep Past Medical History Surgical History SURGICAL: Positive Section (X3) Meds Home Medications and Allergies Home Medications ?Medication ?Instructions ?Recorded ?Confirmed ?Type vits no.130-ferrous fum 1 tab PO QDAY 10/11/25 10/11/25 History 27 mg iron-folic acid 800 mcg tablet ( Vitamin) Allergies Allergy/AdvReac Type Severity Reaction Status Date / Time No Known Allergies Allergy Verified 10/11/25 05:51 OB Exam Physical Exam Vital signs: Temp Pulse Resp BP Pulse Ox O2 Del Method 97.7 F 99 19 129/69 99 Room Air 10/11/25 05:45 10/11/25 05:45 10/11/25 05:45 10/11/25 05:45 10/11/25 05:45 10/11/25 05:45 Constitutional Constitutional: no acute distress Routine HEENT Exam Head: Present normocephalic and atraumatic Eye: Present EOMI and PERRL ENT: Present mucous membranes moist Routine Neck Exam Neck: Present supple and trachea midline Routine Cardiovascular Exam Cardiovascular: Present RRR Routine Abdominal Exam Abdominal: Present soft and normoactive bowel sounds Detailed Labor and Delivery Exam Dilation (cm): 0 Baseline heart rate: 145 monitor accelerations: 15x15 monitor decelerations: None Routine Extremities Exam Extremities: Present full ROM Routine Skin Exam Skin: Present intact, dry and warm Routine Neurological Exam Neurological: Present alert, oriented X3 and CN II-XII intact Routine Psychiatric Exam Psychiatric: Present normal affect and normal thought process OB Results Labs 10/11/25 05:50 Labs: Short CBC 10/11/25 Range/Units 05:50 WBC 8.7 (3.6-11.0) Thou/mm3 Hgb 12.3 (12.0-16.0) g/dL Hct 37.0 (36.0-46.0) % Plt Count 88 L (140-440) Thou/mm3 OB Assessment & Plan Assessment and Plan (1) Encounter for sterilization: Status: Acute (2) Previous delivery affecting , antepartum: Status: Acute Assessment and plan: Admit to inpatient status for repeat low transverse and bilateral salpingectomy. Patient desires to use her vertical incision IV access, CBC, type and screen, LR at 125, RPR, COVID-19 test Ordered 2 units of platelets on hold with blood bank due to low platelets GBS negative Ancef 2 g prior to surgery start Tabor catheter to drainage SCDs for DVT prophylaxis Anesthesia to preop for spinal anesthesia Scheduled for surgery.
--- NOTE | 2025-10-11 08:51 | ESOP_ITS ---
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 The patient was brought to the operating room and identified with two patient identifiers. She was placed in the supine position, and spinal anesthesia was administered. After confirming adequate anesthesia, the abdomen and perineum were prepped and draped in the usual sterile fashion. A Tabor catheter was inserted for continuous bladder drainage. The patient's old vertical scar was significantly hypertrophic. A clear margin of normal skin was marked and I curvilinear incision was made on either side of the vertical scar and almost 1 inch band of hypertrophied tissue was excised off. The incision was now carried through subcutaneous tissue to the rectus fascia. The fascia was incised vertically and the fascial incision was extended both superiorly and inferiorly taking care to protect the underlying structures. The fascia was now dissected off the rectus muscles both superiorly and inferiorly. The rectus bellies were in the midline, and the peritoneum was entered bluntly with the surgeon?s finger. The peritoneal opening was extended to allow adequate exposure. An Ebenezer O-ring retractor was placed for optimal visualization. The lower uterine segment was palpated, and the bladder flap was reflected inferiorly. Uterine window was noted with visible membranes and amniotic fluid debris. A low transverse uterine incision (Andrea Saleh) was made with a scalpel and extended bluntly. The amniotic membranes were ruptured, and clear fluid was released. The fetus was in vertex presentation. The head was elevated out of the maternal pelvis and the shoulders and body were delivered smoothly with gentle fundal pressure. The umbilical cord was doubly clamped and cut, and the was handed to the awaiting team. Cord gases were obtained. The placenta was delivered with gentle traction on the cord. The uterine cavity was cleared of membranes and clots. The hysterotomy angles were secured with Allis clamps. The uterine incision was closed in two layers using #1 Monocryl: the first layer was a running locked suture to approximate the myometrium, and the second layer imbricated the serosa and myometrium. Hemostasis was confirmed. Patient received intraoperative Methergine and tranexamic acid for additional hemostasis. Attention was now turned to the right fallopian tube. The fallopian tube was elevated using a pair of [place] clamps and a complete salpingectomy was performed using the Enseal device dissecting the entire length of the tube from the fimbriated end to the uterine cornua. Similarly the left fallopian tube was excised in a similar fashion. Both dissection sites were inspected and noted to be adequately hemostatic. The Ebenezer retractor was removed. The patient's umbilical hernia was inspected and was noted to be free of any bowel or intra-abdominal structures. Peritoneal edges and rectus muscles were reapproximated. Rectus fascia was closed with 1 PDS loop suture, starting from both the angles and meeting in the midline and both the suture ends were tied together.. The subcutaneous tissue was irrigated with warm saline, and bleeding points were cauterized using Bovie electrocautery. Subcutaneous tissue was approximated in 2 layers, the first layer using 1 strata fix to mobilize the deeper layers and the second layer using a 2 0 STRATAFIX to bring the skin edges together. The skin was closed using 3 0 STRATAFIX in a subcuticular fashion. A Dermabond Prineo dressing was applied and sterile dressing was applied. The patient was cleaned, undraped, and transferred to the recovery room in stable and awake condition. She tolerated the procedure well. No complications were encountered. All counts were correct ?2. Specimen: left tube and right tube Estimated blood loss (ml): 650 Complications: none Surgical staff Operation Date: 10/11/25 07:45 <No data on this case meets the specified criteria> Diagnosis Discharge Diagnosis (1) Encounter for sterilization: Status: Acute (2) Previous delivery affecting , antepartum: Status: Acute Problem List Completed Was Problem List Reviewed/Reconciled?: Yes
--- NOTE | 2025-10-11 08:59 | OBDSUM_ITS ---
Data (Wylie) Data Hx Section: Yes (X3) : 4 Livin Delivery Data (Wylie) Labor Data Induction/Augmentation Agent: None ROM date: 10/11/25 ROM time: 08:08 Amniotic membrane rupture type: Artificial Amniotic fluid description: Clear Delivery Data Onset of labor date: 10/11/25 Onset of labor time: 08:08 Complete dilation date: 10/11/25 Complete dilation time: 08:08 delivery date: 10/11/25 delivery time: 08:09 Placenta delivery date: 10/11/25 Placenta delivery time: 08:10 Stage 1 total time: Labor - Stage 1 Duration 0 minutes Delivered by: Christine Delivery nurse: Georgi Holcomb RN [place] nurse: Regulo Freeman RN Paraprofessional Aide at delivery: No Support person(s) at delivery: fob Other staff at delivery: see or record Delivery Method Delivery method: Classical Presentation: Vertex Anesthesia Type Anesthesia Type: Spinal Anesthesia type: Spinal Placenta Placenta delivery description: Manual Removal Cord blood sent to lab: Yes cord blood collection: Cord Blood Type Umbilical Cord cord description: 3 Vessels [place] Data (Wylie) [place] Data order: 1 [place]'s gender: Female Identification band number: [id number] weight (gms): 3820 g Weight (pounds): 8 lbs and 6.7 ozs [place] length: 53.34 cm 1 minute: 8 5 minutes: 9
[2025-10-11] MEDS: KETOROLAC INJ 30 MG/ML VIAL IVP ×2 (13:38→20:45)
[2025-10-11 14:33] LABS: Basophils # (Auto) 0.0 Thou/mm3 (0.0-0.2); Basophils % (Auto) 0 % (0-2.5); Eosinophils # (Auto) 0.0 Thou/mm3 (0.0-0.5); Eosinophils % (Auto) 0 % (0-10); Hematocrit 36.7 % (36.0-46.0); Hemoglobin 12.5 g/dL (12.0-16.0); Immature Granulocytes Auto 0.08 Thou/mm3 (0.00-0.00); Lymphocytes # (Auto) 1.3 Thou/mm3 (1.0-4.8); Lymphocytes % (Auto) 10 % (10-50); Mean Corpuscular HGB Conc 34.1 g/dl (31.0-37.0); Mean Corpuscular Hemoglobin 30.1 pg (25.0-35.0); Mean Corpuscular Volume 88 fL (80-100); Monocytes # (Auto) 0.7 Thou/mm3 (0.0-0.8); Monocytes % (Auto) 6 % (0-12); Neutrophils # (Auto) 10.9 Thou/mm3 (1.8-7.7); Neutrophils % (Auto) 83 % (37-80); Nucleated Red Blood Cell # 0.00 Thou/mm3 (0.00-0.00); Nucleated Red Blood Cell % 0 /100 WBC (0); Platelet Count 85 Thou/mm3 (140-440); RDW Standard Deviation 47.5 fL (36.4-46.3); Red Blood Count 4.15 Miln/mm3 (4.00-5.20); White Blood Count 13.0 Thou/mm3 (3.6-11.0)
[2025-10-11] MEDS: OXYTOCIN in NS 20 units 20 UNIT/1,000 ML BAG 125 UNIT IV (15:19)
[2025-10-12] VITALS (14 sets, daily range): BP systolic 96–148; BP diastolic 61–90; PULSE 74–99; RESP 15–20; TEMP 36.4–37.2; O2SAT 95–97
[2025-10-12 06:00] LABS: Basophils # (Auto) 0.0 Thou/mm3 (0.0-0.2); Basophils % (Auto) 0 % (0-2.5); Eosinophils # (Auto) 0.1 Thou/mm3 (0.0-0.5); Eosinophils % (Auto) 1 % (0-10); Hematocrit 32.4 % (36.0-46.0); Hemoglobin 10.8 g/dL (12.0-16.0); Immature Granulocytes Auto 0.06 Thou/mm3 (0.00-0.00); Lymphocytes # (Auto) 1.5 Thou/mm3 (1.0-4.8); Lymphocytes % (Auto) 15 % (10-50); Mean Corpuscular HGB Conc 33.3 g/dl (31.0-37.0); Mean Corpuscular Hemoglobin 29.8 pg (25.0-35.0); Mean Corpuscular Volume 90 fL (80-100); Monocytes # (Auto) 0.6 Thou/mm3 (0.0-0.8); Monocytes % (Auto) 7 % (0-12); Neutrophils # (Auto) 7.2 Thou/mm3 (1.8-7.7); Neutrophils % (Auto) 76 % (37-80); Nucleated Red Blood Cell # 0.00 Thou/mm3 (0.00-0.00); Nucleated Red Blood Cell % 0 /100 WBC (0); Platelet Count 89 Thou/mm3 (140-440); RDW Standard Deviation 48.2 fL (36.4-46.3); Red Blood Count 3.62 Miln/mm3 (4.00-5.20); White Blood Count 9.5 Thou/mm3 (3.6-11.0)
[2025-10-12] MEDS: KETOROLAC INJ 30 MG/ML VIAL IVP (06:37)
[2025-10-12] MEDS: DOCUSATE SOD 100 MG CAPSULE PO (08:49)
[2025-10-12] MEDS: HYDROcodone/APAP 5/325 TABLET 2 TAB PO (11:38)
--- NOTE | 2025-10-12 13:27 | PC.NURSE ---
@ [id number] removed dressing, fresh blood noted on dressing, Dr. Love made aware, and assess the patient at bedside. VORB to place an abd pad and secure with tape and continue monitoring.
[2025-10-12] MEDS: fentaNYL CIT INJ 50 mCg/ML AMP 2ML 100 MCG IVP (19:25)
[2025-10-12] MEDS: CITRIC ACID/SODIUM CITR 15 ML UDC (BICITRA) 30 ML PO (21:17)
--- NOTE | 2025-10-12 22:18 | SUR.PHASEI ---
pt received to pacu [facility] 1. vss. breathing even and unlabored. denies pain and nausea. dressing cdi with abdominal binder in place. report from nurse griggs and dr mendoza.
--- NOTE | 2025-10-12 22:24 | PC.NURSE ---
Patient's incision was bleeding during the change of shift. MD (Dr. Love) was notified. She came and examined the patient at bedside. She decided to do surgery for the patient. Patient, significant other, family and nurses at bedside. Patient was brought to OR around 21:15 via gurney.
--- NOTE | 2025-10-12 23:43 | PD.LDPPPRG ---
Subjective Subjective Interval history: The patient is a 25-year-old -0-0-4 postop day 1 status post repeat low-transverse section by Dr. King. She also had a bilateral tubal ligation. I rounded on the patient at approximately 9:00 in the morning 10/12/2025 and she was resting in bed. She had a large amount of tape on her abdomen and this was removed to look at her incision. The midline incision was found to be leaking blood. So a dressing was placed on it and the plan was to observe it during the day. Patient was voiding ,ambulating ,passing flatus, tolerating a general diet and breast-feeding. She is [place]-speaking only and the exam and interview was conducted with one of the [place]-speaking nurses from labor and delivery. Exam Vital Signs Temp Pulse Resp BP Pulse Ox O2 Del Method 99 F 79 19 123/72 96 Room Air 10/12/25 23:33 10/12/25 23:33 10/12/25 23:33 10/12/25 23:33 10/12/25 23:33 10/12/25 20:00 Narrative Exam Patient is alert and orient x 3 in no apparent distress Abdomen slightly distended. Fundus is firm. Midline vertical incision leaking blood underneath the Dermabond type dressing. Objective Labs 10/12/25 05:37 Labs: Laboratory Results - last 24 hr 10/11/25 10/12/25 05:50 05:37 WBC 9.5 RBC 3.62 L Hgb 10.8 L Hct 32.4 L MCV 90 MCH 29.8 MCHC 33.3 RDW Std Deviation 48.2 H Plt Count 89 L Neut % (Auto) 76 Lymph % (Auto) 15 [place] % (Auto) 7 Eos % (Auto) 1 Baso % (Auto) 0 Neut # (Auto) 7.2 Lymph # (Auto) 1.5 [place] # (Auto) 0.6 Eos # (Auto) 0.1 Baso # (Auto) 0.0 Immature Gran # (Auto) 0.06 H Absolute Nucleated RBC 0.00 Immature Gran % 1 H Nucleated RBC % 0 Blood Type O Positive Antibody Screen NEGATIVE Crossmatch See Detail Blood Bank Wristband ID Yes Blood Bank Comment PLATP Ready Assessment & Plan Problem List (1) care following delivery: Status: Acute Assessment and plan: Continue routine postop care. Monitor drainage of incision. If it continues to leak blood, we will have to remove the Dermabond Prineo dressing to better examine the incision. Time Spent With Patient Time: Total time spent is greater than 50% in coordination of care (as documented) at patient's floor/unit and/or counseling patient: Time with patient: less than 15 minutes
--- NOTE | 2025-10-12 23:48 | SUR.PHASEI ---
report called to yousif on .vss. breathing even and unlabored. denies pain and nausea. dressing and peripad cdi. abdominal binder in place. transported to room via bed
--- NOTE | 2025-10-12 23:53 | EVENTNT_ITS ---
Documentation for date of: 10/12/25 Event Note Event Note: I was called by the principal bioinformatics specialist to bedside around 1800 to reexamine patient's incision. She had soaked several ABD pads over the day with watery bloody drainage from her incision. Alcohol wipes were used to gently remove the patient's Dermabond dressing and patient was found to have clots coming out of a part of her vertical incision. This was irrigated and wiped away. Patient was quite uncomfortable. Some defects were noted in her vertical incision that could not be repaired at bedside secondary to patient discomfort. She was consented for a revision of her incision in the operating room and possible closure with carisa. All questions were answered and consents were signed.
--- NOTE | 2025-10-12 23:55 | PD.GYNPROC ---
Operative Note - [employer] ELECTRICAL ENGINEER Procedure Date of procedure: 10/12/25 Procedure Performed: Revision of vertical section incision Indication: Patient is a 25-year-old -0-0-4 past obstetrical history significant for x 4 all with vertical skin incisions. She had a repeat section and bilateral salpingectomy performed 10/11/[address] Riley. The patient had large amount of bloody fluid draining from her incision with suspected incisional defects noted. She was consented for an exam under anesthesia and repair of incision. Pre-Op diagnosis: Bloody drainage from vertical incision, suspected partial wound dehiscence Post-Op diagnosis: Same Anesthesia type: Local Procedure description: After obtaining informed consent through a Amharic-speaking tank washer, the patient was brought back to the operating room and spinal anesthesia was administered. She was given 2 g of Ancef by anesthesia. She was prepped and draped in the dorsal supine position in a normal sterile fashion. Her vertical incision was examined and the skin sutures were removed using Metzenbaum scissors. The incision was opened and copiously irrigated. A couple of small areas of oozing were noted and these were cauterized with Bovie electrocautery. No pumping blood vessel was seen. Her fascia was found to be intact. The layers of suture and her subcutaneous tissue were removed using Metzenbaum scissors. Again this layer was carefully surveyed for any bleeding blood vessels and any that were seen were cauterized. The subcutaneous tissue was reapproximated using interrupted [id number] sutures of 3-0 Vicryl in 2 layers. The skin was then reapproximated using carisa. Lidocaine without epinephrine was injected subcutaneously for improved pain control post operatively. The procedure was then terminated. The incision was dressed with an ABD and lightly taped. An abdominal binder was placed. Patient tolerated the procedure well. Sponge lap needle counts correct x 2. Patient went to recovery awake and in stable condition. Pathology was none. Fluids: crystalloid Fluid amount (mL): 500 Urine output (mL): 0 Specimen: none Implants: None Estimated blood loss (ml): 5 Findings: Bleeding from edges of incision and subcutaneous tissue. Fascia intact. Skin edges bleeding. A couple of places where the skin was pulling apart and not reapproximated well. Complications: none Surgical staff Operation Date: 10/12/25 21:15 Case Staff Anesthesiologist: Durga Knutson cloth bleaching range tender: Jacqueline Sims Diagnosis Discharge Diagnosis (1) care following delivery: Status: Acute (2) Encounter for sterilization: Status: Acute (3) Wound dehiscence, , condition: Status: Acute Problem details: Patient is status post repair of skin incision and subcutaneous tissue POD #1 status post repeat low-transverse Problem List Completed Was Problem List Reviewed/Reconciled?: Yes
[2025-10-13 00:37] VITALS: BP 129/77; PULSE 79; RESP 21; TEMP 36.9; O2SAT 96
[2025-10-13] MEDS: HYDROcodone/APAP 5/325 TABLET 1 TAB PO ×2 (04:11→15:19)
[2025-10-13 04:18] VITALS: BP 111/71; PULSE 89; RESP 18; TEMP 37.2; O2SAT 97
[2025-10-13 07:59] LABS: Basophils # (Auto) 0.0 Thou/mm3 (0.0-0.2); Basophils % (Auto) 1 % (0-2.5); Eosinophils # (Auto) 0.1 Thou/mm3 (0.0-0.5); Eosinophils % (Auto) 1 % (0-10); Hematocrit 32.6 % (36.0-46.0); Hemoglobin 11.0 g/dL (12.0-16.0); Immature Granulocytes Auto 0.06 Thou/mm3 (0.00-0.00); Lymphocytes # (Auto) 1.7 Thou/mm3 (1.0-4.8); Lymphocytes % (Auto) 21 % (10-50); Mean Corpuscular HGB Conc 33.7 g/dl (31.0-37.0); Mean Corpuscular Hemoglobin 30.6 pg (25.0-35.0); Mean Corpuscular Volume 91 fL (80-100); Monocytes # (Auto) 0.5 Thou/mm3 (0.0-0.8); Monocytes % (Auto) 6 % (0-12); Neutrophils # (Auto) 5.8 Thou/mm3 (1.8-7.7); Neutrophils % (Auto) 71 % (37-80); Nucleated Red Blood Cell # 0.00 Thou/mm3 (0.00-0.00); Nucleated Red Blood Cell % 0 /100 WBC (0); Platelet Count 117 Thou/mm3 (140-440); RDW Standard Deviation 50.4 fL (36.4-46.3); Red Blood Count 3.59 Miln/mm3 (4.00-5.20); White Blood Count 8.2 Thou/mm3 (3.6-11.0)
[2025-10-13 09:00] VITALS: BP 114/71; PULSE 99; RESP 18; TEMP 36.9; O2SAT 97
[2025-10-13] MEDS: PRENATAL VITAMIN/FE FUM/FA TABLET 1 TAB PO (09:23)
[2025-10-13] MEDS: DOCUSATE SOD 100 MG CAPSULE PO (09:23)
--- NOTE | 2025-10-13 09:39 | ESDS_ITS ---
DS: Providers Provider Date of admission: 10/11/25 05:08 Primary care physician: Physician No Primary/Family Admitting Provider: Sage King MD Attending Provider on Admission: Sage King MD Consults: 10/11/25 11:23 Referral Routine Comment: Attending Provider on DC: Victorina Mandujano MD Discharging Provider: Victorina Mandujano MD DS: Diagnosis Discharge Diagnosis (1) Wound dehiscence, , condition: Status: Acute (2) care following delivery: Status: Acute (3) Encounter for sterilization: Status: Acute (4) Thrombopenia: Status: Acute Problem List Completed Was Problem List Reviewed/Reconciled?: Yes Summary/Hosp Course Brief History: Patient is a 25-year-old 4 para 3-0-0-3 at 39 weeks and 0 days with estimated due date of 10/18/2025 who is presenting for her scheduled repeat low-transverse and bilateral salpingectomy. Patient denies any specific complaints on presentation today. Of note her platelet count is 88,000 today, her last baseline available for review is 122,000 and her 32-week labs./ patient was taken for revision of incision on 10/12/2025 / she does have a low platelet count and now trending up at 117 Peripartum Data Delivery Method: Low Transverse Episiotomy Description: None Procedures: Procedures Operation Date: 10/11/25 07:45 Actual Procedure Side Surgeon p in OB Bilateral Sage King MD Operation Date: 10/12/25 21:15 Actual Procedure Side Surgeon p revision of incision with repair Angelina Love ([facility])MD complications: other (superficial bleeding, wound superficial dehiscence ) Time Spent with Patient Time attestation: Total time spent providing and/or coordinating discharge services: Exam Vital Signs Temp Pulse Resp BP Pulse Ox O2 Del Method 99 F 89 18 111/71 97 Room Air 10/13/25 04:18 10/13/25 04:18 10/13/25 04:18 10/13/25 04:18 10/13/25 04:18 10/13/25 04:18 Narrative Exam alert x3 chest clear CVS RRR NO thyromegaly Uterus is nontender Uterus is firm/ appropriate size Just below the umbilicus Bowel sounds present Abdomen soft no hernias noted/no CVAT Incision CDI No drainage Appropriately tender No calf tenderness Edema mild Discharge Plan Plan Patient Disposition: HOME (Self Care) Disposition Comment: stable Patient condition on transfer: Stable Prescriptions/Referrals Prescriptions/Med Rec: New hydrocodone-acetaminophen 5-325 mg tablet 1 tab PO Q6H MDD 4 PRN (Reason: pain) 5 Days Qty: 20 0RF docusate sodium [Stool Softener] 100 mg capsule 100 mg PO QDAY 30 Days Qty: 30 0RF ibuprofen 600 mg tablet 600 mg PO Q6H MDD 4 PRN (Reason: fever or pain) 10 Days Qty: 40 0RF Continued Vitamin 27 mg iron- 800 mcg tablet 1 tab PO QDAY Referrals: Sage King MD [Physician, WINDOWS INFRASTRUCTURE ENGINEER] No Primary/Family,Physician [Primary Care Provider] Patient/Caregiver Discharge Instructions Discharge Activity: activity as tolerated Other Discharge Activity Instructions:: pelvic rest x 6 weeks / follow up with her ob or at clinic in 1 week / remove dressing tomorrow Other Discharge Diet Instructions: regular diet/ continue vitamins Education Materials: After a , C Section Dc Print Language: Lao Stand Alone Forms: Maude Award Info., Patient Portal Info Letter, DC from Surgery Discharge Order Discharge Orders: Discharge (Routine); Ordered 10/13/25 Ordered By: Victorina Mandujano Planned Discharge Date 10/13/25
[2025-10-13] MEDS: guaiFENesin SYRUP 200 MG/10 ML UDC PO ×2 (12:29→21:02)
[2025-10-13] MEDS: IBUPROFEN TAB 400 MG TABLET 800 MG PO (15:18)
[2025-10-13 15:25] VITALS: BP 138/78; PULSE 72; RESP 18; TEMP 37.1; O2SAT 97
[2025-10-13 19:35] VITALS: BP 125/71; PULSE 66; RESP 18; TEMP 36.8; O2SAT 97
[2025-10-14 03:43] VITALS: BP 123/76; PULSE 62; RESP 18; TEMP 37.2; O2SAT 97
[2025-10-14 06:06] LABS: Basophils # (Auto) 0.0 Thou/mm3 (0.0-0.2); Basophils % (Auto) 1 % (0-2.5); Eosinophils # (Auto) 0.2 Thou/mm3 (0.0-0.5); Eosinophils % (Auto) 3 % (0-10); Hematocrit 33.7 % (36.0-46.0); Hemoglobin 11.3 g/dL (12.0-16.0); Immature Granulocytes Auto 0.04 Thou/mm3 (0.00-0.00); Lymphocytes # (Auto) 1.6 Thou/mm3 (1.0-4.8); Lymphocytes % (Auto) 22 % (10-50); Mean Corpuscular HGB Conc 33.5 g/dl (31.0-37.0); Mean Corpuscular Hemoglobin 30.5 pg (25.0-35.0); Mean Corpuscular Volume 91 fL (80-100); Monocytes # (Auto) 0.5 Thou/mm3 (0.0-0.8); Monocytes % (Auto) 7 % (0-12); Neutrophils # (Auto) 4.8 Thou/mm3 (1.8-7.7); Neutrophils % (Auto) 67 % (37-80); Nucleated Red Blood Cell # 0.00 Thou/mm3 (0.00-0.00); Nucleated Red Blood Cell % 0 /100 WBC (0); Platelet Count 146 Thou/mm3 (140-440); RDW Standard Deviation 50.1 fL (36.4-46.3); Red Blood Count 3.70 Miln/mm3 (4.00-5.20); White Blood Count 7.1 Thou/mm3 (3.6-11.0)
[2025-10-14 08:00] VITALS: BP 115/74; PULSE 78; RESP 20; TEMP 36.9; O2SAT 97
[2025-10-14] MEDS: DOCUSATE SOD 100 MG CAPSULE PO (08:31)
[2025-10-14] MEDS: PRENATAL VITAMIN/FE FUM/FA TABLET 1 TAB PO (08:31)
[2025-10-14] MEDS: guaiFENesin SYRUP 200 MG/10 ML UDC PO (08:31)
[2025-10-14] MEDS: cefTRIAXone/D5w 1gm IV premix 1 GM/50 ML BAG IV (08:38)
--- NOTE | 2025-10-14 09:29 | ESPR_ITS ---
Subjective Subjective Interval history: Patient is a 25-year-old -0-0-4 postop day 3 status post repeat low- transverse section with bilateral salpingectomies by Dr. King. The patient stayed yesterday because the baby had lost some weight. She is ready for discharge today. Of note, on postop day #1, I took the patient back to the OR for a incision revision secondary to bleeding. She now has carisa in place. She is ambulating,tolerating ,a general diet and voiding. She is anxious that her incision will open. She is exclusively breast-feeding. She is otherwise resting comfortably. The exam and interview was conducted with Zuleyma, labor and medical delivery technician at bedside. Exam Vital Signs Temp Pulse Resp BP Pulse Ox O2 Del Method 98.4 F 78 20 115/74 97 Room Air 10/14/25 08:00 10/14/25 08:00 10/14/25 08:00 10/14/25 08:00 10/14/25 08:00 10/14/25 08:00 Narrative Exam Patient is alert and orientated x 3 she is slightly anxious but otherwise in no apparent distress. Abdomen soft slightly distended incision clean dry and intact with tiny bit erythema around the carisa Vertical incision in place Fundus is firm at umbilicus Extremities show no sinus clubbing or edema Objective Labs 10/14/25 05:50 Labs: Laboratory Results - last 24 hr 10/11/25 10/14/25 05:50 05:50 WBC 7.1 RBC 3.70 L Hgb 11.3 L Hct 33.7 L MCV 91 MCH 30.5 MCHC 33.5 RDW Std Deviation 50.1 H Plt Count 146 D Neut % (Auto) 67 Lymph % (Auto) 22 Aiken % (Auto) 7 Eos % (Auto) 3 Baso % (Auto) 1 Neut # (Auto) 4.8 Lymph # (Auto) 1.6 Aiken # (Auto) 0.5 Eos # (Auto) 0.2 Baso # (Auto) 0.0 Immature Gran # (Auto) 0.04 H Absolute Nucleated RBC 0.00 Immature Gran % 1 H Nucleated RBC % 0 Blood Type O Positive Antibody Screen NEGATIVE Crossmatch See Detail Blood Bank Wristband ID Yes Blood Bank Comment PLATP Ready Assessment & Plan Problem List (1) Wound dehiscence, , condition: Problem details: Patient is status post repair of vertical skin incision and subcutaneous tissue on POD #1 status post repeat low-transverse /BTL Patient was given Ancef during repair She was given Rocephin the day of discharge Home on Augmentin. Status: Acute (2) care following delivery: Problem details: Patient will be discharged home postoperative day #3 in stable condition. Status: Acute (3) Encounter for sterilization: Status: Acute (4) Thrombopenia: Problem details: Platelets were 88 on admission. They are back up to 146 postoperative day #3 Status: Acute Time Spent With Patient Time: Total time spent is greater than 50% in coordination of care (as documented) at patient's floor/unit and/or counseling patient: Time with patient: less than 15 minutes
--- NOTE | 2025-10-14 10:14 | PD.LDDS ---
DS: Providers Provider Date of admission: 10/11/25 05:08 Primary care physician: Physician No Primary/Family Admitting Provider: Sage King MD Attending Provider on Admission: Sage King MD Consults: 10/11/25 11:23 Referral Routine Comment: Attending Provider on DC: Angelina Love MD ([facility]) Discharging Provider: Angelina Love MD ([facility]) Anticipated date of discharge: 10/14/25 DS: Diagnosis Discharge Diagnosis (1) Wound dehiscence, , condition: Status: Acute Assessment & Plan: Patient taken back postoperative day #1 for an exam under anesthesia and repeat wound closure. Home on Augmentin. [place] in place to be removed postop day 10. (2) care following delivery: Status: Acute Assessment & Plan: No heavy lifting intercourse tampons or douching for 8 weeks. No exercise x 8 weeks. (3) Encounter for sterilization: Status: Acute (4) Thrombocytopenia affecting : Status: Acute Assessment & Plan: Platelets on admission were 88. Postoperative day #3 they were back up to 146. Problem List Completed Was Problem List Reviewed/Reconciled?: Yes Summary/Hosp Course Brief History: Patient is a 25-year-old 4 para 3-0-0-3 at 39 weeks and 0 days with estimated due date of 10/18/2025 who is presenting for her scheduled repeat low-transverse and bilateral salpingectomy. Patient denies any specific complaints on presentation. Patient was admitted by Dr. King. Please see history and physical for further details. Hospital course: Patient underwent a repeat Peripartum Data Delivery Method: Low Transverse Episiotomy Description: None Procedures: Procedures Operation Date: 10/11/25 07:45 Actual Procedure Side Surgeon p in OB Bilateral Sage King MD Operation Date: 10/12/25 21:15 Actual Procedure Side Surgeon p revision of incision with repair Angelina Love ([facility])MD complications: other (Bleeding from incision, requiring another trip to the operating room postoperative day #1 for an incision revision.) Status at Discharge Cognitive/behavioral status at discharge: Patient is alert and orient x 3 in no apparent distress Functional status at discharge: independent ambulation Overall status at discharge: patient is progressing back to baseline Time Spent with Patient Time attestation: Total time spent providing and/or coordinating discharge services: Time spent: Less than 30 minutes Specific discharge activities: Pelvic rest x 6 weeks no intercourse tampons douching or bathtubs x 6 weeks. No heavy exercise x 6 weeks. No heavy lifting x 6 weeks. Come back to the office for staple removal postoperative day #10. Exam Vital Signs Temp Pulse Resp BP Pulse Ox O2 Del Method 98.4 F 78 20 115/74 97 Room Air 10/14/25 08:00 10/14/25 08:00 10/14/25 08:00 10/14/25 08:00 10/14/25 08:00 10/14/25 08:00 Narrative Exam Patient is alert and orient x 3 in no apparent distress. Fundus is firm nontender. Incision clean dry and intact with carisa in place. It is vertical incision. She has a minor amount of erythema around her incision unclear whether this is an early cellulitis or bruising. Extremities show no C/C/E Discharge Plan Plan Patient Disposition: HOME (Self Care) Disposition Comment: stable Patient condition on transfer: Stable Prescriptions/Referrals Prescriptions/Med Rec: New hydrocodone-acetaminophen 5-325 mg tablet 1 tab PO Q6H MDD 4 PRN (Reason: pain) 5 Days Qty: 20 0RF docusate sodium [Stool Softener] 100 mg capsule 100 mg PO QDAY 30 Days Qty: 30 0RF ibuprofen 600 mg tablet 600 mg PO Q6H MDD 4 PRN (Reason: fever or pain) 10 Days Qty: 40 0RF acetaminophen 325 mg Tablet 650 mg PO Q6HR PRN (Reason: Patient rated pain of 3) Qty: 60 0RF docusate sodium 100 mg Capsule 100 mg PO QDAY Qty: 30 0RF Vitamin 27 mg iron- 800 mcg Tablet 1 tab PO QDAY Qty: 60 0RF amoxicillin-pot clavulanate [Augmentin] 500-125 mg tablet 1 tab PO BID Qty: 20 0RF Continued Vitamin 27 mg iron- 800 mcg tablet 1 tab PO QDAY Referrals: Sage King MD [Physician, GRAIN SHOVELER] No Primary/Family,Physician [Primary Care Provider] Patient/Caregiver Discharge Instructions Discharge Activity: activity as tolerated Other Discharge Activity Instructions:: Pelvic rest x 6 weeks. No heavy lifting or heavy exercise x 8 weeks. Return to clinic postop day 10 for staple removal. Call for heavy bleeding, fevers or erythema around incision. Call for depression. Other Discharge Diet Instructions: regular diet/ continue vitamins Education Materials: Breast Care After , After a , C Section Dc Print Language: Telugu Stand Alone Forms: Maude Award Info., Patient Portal Info Letter, DC from Surgery Discharge Order Discharge Orders: Discharge (Routine); Ordered 10/14/25 Ordered By: Angelina Love ([facility]) Planned Discharge Date 10/14/25
== END 2025-10-14 12:00 | disposition home or self-care (01) | DRG 539 ==
LOC: S4SX 08:13 → S4NX 08:13
PROVIDERS: Obstetrics & Gynecology; Admitting Provider Obstetrics & Gynecology; Visit Provider Obstetrics & Gynecology
PROC: (CPT 59514; principal; 2025-10-11 07:30)
DX: O34.211 Maternal care for low transverse scar from previous cesarean delivery (principal); Z30.2 Encounter for sterilization; Z37.0 Single live birth; Z3A.39 39 weeks gestation of pregnancy; O99.62 Diseases of the digestive system complicating childbirth; K42.9 Umbilical hernia without obstruction or gangrene; O99.12 Other diseases of the blood and blood-forming organs and certain disorders involving the immune mechanism complicating childbirth; D69.6 Thrombocytopenia, unspecified
CPT/HCPCS: 36415; 85025; 85049; 86780; 86850; 86900; 86901; 86923; 86965; A4217; A4649; J0689; J0696; J1885; J2210; J2250; J2274; J2405; J2590; J2765; J3010; J3290; J3490; J7120; A9270; J2270